=== PATIENT | male | born 1950 | race Two or more races ===

== ENCOUNTER 2022-01-04 21:20 | Inpatient (IN) | payer OTHER ==
[~2022-01-04] VITALS: Ht 177.8 cm; Wt 109.1 kg
[2022-01-04] MEDS ORDERED: ACETAMINOPHEN 325 MG TABLET PO PRN ×2 (22:00→23:00)
[2022-01-04] MEDS ORDERED: traZODone 50 MG TABLET. PO PRN (22:00)
[2022-01-04] MEDS ORDERED: CHLO473M MM (22:00)
[2022-01-04] MEDS ORDERED: ENOX40DI SQ (22:00)
[2022-01-04] MEDS ORDERED: CYAN-25 PO (22:00)
[2022-01-04] MEDS ORDERED: OLANZapine 2.5 MG TABLET PO PRN (22:00)
[2022-01-04] MEDS ORDERED: SERT-269 PO (22:00)
[2022-01-04] MEDS ORDERED: ATEN50TA PO (22:00)
[2022-01-04] MEDS ORDERED: ACET325T21 PO (22:00)
[2022-01-04] MEDS ORDERED: QUET50TA5 PO (22:00)
[2022-01-04] MEDS ORDERED: AMLO-187 PO (22:00)
[2022-01-04] MEDS ORDERED: TRAZ-120 PO ×2 (22:00)
[2022-01-04] MEDS ORDERED: PRAV40TA2 PO (22:00)
[2022-01-04] MEDS ORDERED: OLAN2.5T3 PO (22:00)
[2022-01-04] MEDS ORDERED: MELA10TA PO (22:00)
[2022-01-04 22:03] VITALS: BP 153/91
[2022-01-04] MEDS ORDERED: MELATONIN 3 MG TABLET PO PRN (22:15)
[2022-01-04] MEDS: ATORVASTATIN CALCIUM 10 MG TABLET. PO SCH (22:19)
[2022-01-04] MEDS: QUEtiapine 50 MG TABLET. PO SCH (22:19)
[2022-01-04] MEDS: traZODone 50 MG TABLET. PO SCH (22:19)
[2022-01-04] MEDS: amLODIPine BESYLATE 10 MG TABLET PO SCH (22:20)
[2022-01-04] MEDS: MELATONIN 3 MG TABLET PO SCH (22:20)
[2022-01-04] MEDS ORDERED: METHYL SALICYLATE/MENTHOL TOPICAL OINTMENT 57GM TUBE. TP PRN (23:00)
[2022-01-04] MEDS ORDERED: MAGNESIUM HYDROXIDE 2,400 MG/30 ML ORAL.SUSP. PO PRN (23:00)
[2022-01-04] MEDS ORDERED: MAG HYDROX/AL HYDROX/SIMETH 30 ML ORAL.SUSP PO PRN (23:00)
[2022-01-05 06:21] VITALS: BP 129/89
[2022-01-05 06:39] LABS: BACTERIA,URINE 0 /HPF (0-FEW); CLARITY,URINE CLEAR; COLOR,URINE YELLOW; GLUCOSE,URINE NEG (NEG); NITRITE,URINE NEG (NEG); RBC,URINE 0 /HPF (0-2); UROBILINOGEN,URINE 0.2 mg/dL (0.2 mg/dL); WBC,URINE 0 /HPF (0-4)
[2022-01-05 06:40] LABS: BASO # 0.1 x10^3/uL (0.0-0.2); BASO % 1 % (0-3); EOS # 0.4 x10^3/uL (0.0-0.7); EOS % 4 % (0-3); HEMATOCRIT 44.8 % (39.0-53.0); HEMOGLOBIN 14.8 g/dL (13.0-17.5); LYMPH % 12 % (24-48); MEAN CORPUSCULAR HEMOGLOBIN 31 pg (25-35); MEAN CORPUSCULAR HGB CONC 33 g/dL (31-37); MEAN CORPUSCULAR VOLUME 93 fL (79-100); MONO # 0.9 x10^3/uL (0.0-1.1); MONO % 10 % (0-9); NEUT # 6.4 x10^3uL (1.8-7.7); NEUT % 73 % (31-73); PLATELET COUNT 216 x10^3/uL (140-400); RED BLOOD COUNT 4.84 x10^6/uL (4.30-5.70); RED CELL DISTRIBUTION WIDTH 13.9 % (11.5-14.5); WHITE BLOOD COUNT 8.7 x10^3/uL (4.0-11.0)
[2022-01-05 06:55] LABS: ALBUMIN 3.6 g/dL (3.4-5.0); ALBUMIN/GLOBULIN RATIO 1.2 (1.0-1.7); CALCIUM 8.7 mg/dL (8.5-10.1); CREATININE 1.1 mg/dL (0.7-1.3); GFR 65.6; POTASSIUM 4.4 mmol/L (3.5-5.1); TOTAL BILIRUBIN 0.4 mg/dL (0.2-1.0); TOTAL PROTEIN 6.7 g/dL (6.4-8.2)
[2022-01-05] MEDS: QUEtiapine 50 MG TABLET. PO SCH ×2 (07:48→20:30)
[2022-01-05] MEDS: CYANOCOBALAMIN (VITAMIN B-12) 1,000 MCG TABLET. PO SCH (07:49)
[2022-01-05] MEDS: ATENOLOL 50 MG TABLET PO SCH (07:49)
[2022-01-05] MEDS: SERTRALINE 100 MG TABLET. PO SCH (07:49)
[2022-01-05] MEDS: CHLORHEXIDINE 0.12% 15 ML MOUTHWASH. MM SCH ×2 (07:49→20:28)
[2022-01-05] MEDS ORDERED: ENOXAPARIN 40 MG/0.4 ML SYRINGE. SQ SCH (09:00)
[2022-01-05] MEDS ORDERED: QUEtiapine 50 MG TABLET. PO SCH (09:00)
[2022-01-05 11:33] LABS: CHOLESTEROL/HDL RATIO 4.5
[2022-01-05 11:34] LABS: THYROID STIM HORMONE (TSH) 2.02 uIU/mL (0.358-3.740)
[2022-01-05 15:00] VITALS: BP 128/88
[2022-01-05] MEDS: MELATONIN 3 MG TABLET PO SCH (20:28)
[2022-01-05] MEDS: ATORVASTATIN CALCIUM 10 MG TABLET. PO SCH (20:29)
[2022-01-05] MEDS: traZODone 50 MG TABLET. PO SCH (20:29)
[2022-01-05] MEDS: amLODIPine BESYLATE 10 MG TABLET PO SCH (20:29)
[2022-01-05] MEDS ORDERED: ATORVASTATIN CALCIUM 10 MG TABLET. PO SCH (21:00)
[2022-01-05] MEDS ORDERED: amLODIPine BESYLATE 10 MG TABLET PO SCH (21:00)
[2022-01-05] MEDS ORDERED: traZODone 50 MG TABLET. PO SCH (21:00)
--- NOTE | 2022-01-06 06:02 | EKG ---
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
[2022-01-06 06:10] VITALS: BP 117/78
[2022-01-06 06:10] LABS: HEMOGLOBIN A1C 6.1 % (4.8-5.6)
[2022-01-06] MEDS: SERTRALINE 100 MG TABLET. PO SCH (07:42)
[2022-01-06] MEDS: ATENOLOL 50 MG TABLET PO SCH (07:42)
[2022-01-06] MEDS: CYANOCOBALAMIN (VITAMIN B-12) 1,000 MCG TABLET. PO SCH (07:43)
[2022-01-06] MEDS: CHLORHEXIDINE 0.12% 15 ML MOUTHWASH. MM SCH ×2 (07:43→20:58)
[2022-01-06] MEDS: QUEtiapine 50 MG TABLET. PO SCH ×2 (07:43→20:58)
--- NOTE | 2022-01-06 12:29 | HP ---
DATE OF SERVICE: 01/06/2022 ADMIT DATE: 01/04/2022 PSYCHIATRIC ADMISSION HISTORY AND EVALUATION This is a late entry, date of service 01/05, covers elements not covered in my initial note of 01/05. I met with the patient evening of 01/05, previously discussed with Padmini Payton, marketing research coordinator and nursing staff to gather historical information regarding circumstances prompting the patient's referral to us from [facility] in [place] and discussed with nursing staff couple of times following the patient's admission. Reviewed his past history, current past records. IDENTIFYING DATA: The patient is a 71-year-old male referred to us from [facility] in [place] after he presented to the [facility] in [place] and then referred to us on account of an acute exacerbation of his schizophrenia versus schizoaffective disorder, bipolar type and a history of PTSD. The patient had been paranoid, suspicious, extremely agitated, angry with pressured speech, verbally abusive, hallucinating, delusional. He was yelling about shootings happening at the [facility], conspiracies, another violent type ideology. He had failed outpatient psychiatric interventions. Behavior is deemed dangerous, unmanageable at the facility resulting in this referral initiated by the [place]. CHIEF COMPLAINT: "Its smell bad. My roommate poops and spreads it all over his body. I cannot live with that." The patient was hitting really hard with one hand on the other hand trying to express how frustrated, angry he was about this whole thing. HISTORY OF PRESENT ILLNESS: Reportedly, the patient has a history of schizoaffective disorder, bipolar type, treated at the [facility] in the past. He has been in nursing facilities for some time, recently getting more paranoid, agitated as noted above. He has had sleep and appetite changes, grandiosity. No active suicidal or homicidal ideation. PAST PSYCHIATRIC HISTORY: As above. MEDICAL HISTORY: Hyperlipidemia, hypertension, history of alcohol dependence, GERD, hyponatremia, diabetes mellitus, back pains, schizophrenia, PTSD. CODE STATUS: Full code. ALLERGIES: WELLBUTRIN, SIMVASTATIN. ACCU-CHEKS: None. DIET: Regular, diabetic. Takes medications whole. Ambulates ad maribell, though he uses a cane at home. CURRENT PSYCHOTROPICS: Melatonin 10 mg at bedtime, Seroquel 50 mg b.i.d., Zoloft 100 mg a day, trazodone 25 mg at bedtime, p.r.n. and q. 8 hours. FAMILY HISTORY: Noncontributory. SOCIAL HISTORY: Positive for alcohol abuse. No physical or sexual, elder abuse history is noted. He is not known to be a perpetrator. Reportedly his mother is 95 years old and he is closely involved with her. He states he was happy as to nursing facility in [place], but now he has no family there and he has not been happy at any of the facilities here in the [facility]. REVIEW OF SYSTEMS: No CV, , pulmonary, eye, ENT system symptoms on review. MENTAL STATUS EXAM: The patient seen individually on evening of 01/05. He is awake, alert, oriented. Speech coherent, rapid, at times loud with push of speech. Abstraction fair. Computation somewhat impaired. Language function intact. Attention span short. Mood and affect remains labile. He is paranoid, delusional. No active suicidal or homicidal ideation. IMPRESSION: Schizoaffective disorder, bipolar type, mixed with psychotic features; anxiety disorder, unspecified; impulse control disorder, unspecified. Rest as above including history of alcoholism. PLAN: Admit to Geropsychiatry Unit at [facility]. I will see the patient daily individually from a psychiatric standpoint, medical followup, Dr. Wilson/Dr. Pierson. Continue the patient on his current psychotropics. Consider adding Depakote as a mood stabilizer, [facility] We will make further adjustments as clinically indicated. ESTIMATED LENGTH OF STAY: 10-12 days. DISPOSITION PLANS: Back to [facility] when stable. OSEAS/CHERI WOOTEN: OSEAS/tiera TID: [id number]
[2022-01-06 16:04] VITALS: BP 139/93
[2022-01-06] MEDS: MELATONIN 3 MG TABLET PO SCH (20:59)
[2022-01-06] MEDS: traZODone 50 MG TABLET. PO SCH (20:59)
[2022-01-06] MEDS: ATORVASTATIN CALCIUM 10 MG TABLET. PO SCH (20:59)
[2022-01-06] MEDS: amLODIPine BESYLATE 10 MG TABLET PO SCH (20:59)
[2022-01-06] MEDS: DIVALPROEX ER 500 MG TAB.ER.24H PO SCH (21:01)
--- NOTE | 2022-01-06 21:57 | PDOC ---
Exam Note: Ancelmo Note: Late entry for 01/05/2022. Please also refer to the separate dictated note~for this date of service dictated separately.~Patient seen individually. Discussed the patient with Nursing staff reviewed the chart.~Reviewed interim history and current functioning. Reviewed vital signs,~Labs/ Radiology~and current medic ations noted below. Continue current treatment with the changes noted in the dictated addendum note Assessment: Vital Signs/I&O: Vital Signs Date Time Temp Pulse Resp B/P (MAP) Pulse Ox O2 Delivery O2 Flow Rate FiO2 01/06/22 20:59 72 139/93 01/06/22 16:04 97.3 20 98 Room Air I & O 01/05/22 01/05/22 01/06/22 15:00 23:00 07:00 Intake Total 480 ml 690 ml Balance 480 ml 690 ml Current Medications: Meds: Current Medications Medications (Trade) Dose Ordered Sig/Marie Route PRN Reason Start Time Stop Time Status Last Admin Dose Admin Divalproex Sodium (Depakote Er) 500 mg QHS PO 01/06/22 21:00 01/06/22 21:01 I have reviewed the current psychotropics carefully including drug interactions. Risk benefit ratio favors no change other than as noted in my dictated progress note. Diagnosis: Problems: (1) Schizoaffective disorder, bipolar type (2) Impulse control disorder, unspecified (3) Anxiety disorder, unspecified (4) Bipolar disorder, curr episode mixed, severe, with psychotic features SG AGUIRRE MD January 06, 2022 21:57
--- NOTE | 2022-01-06 21:57 | PDOC ---
Exam Note: Ancelmo Note: Please also refer to the separate dictated note~for this date of service dictated separately.~Patient seen individually. Discussed the patient with Nursing staff reviewed the chart.~Reviewed interim history and current functioning. Reviewed vital signs,~Labs/ Radiology~and current medications noted below. Continue current treatment with the changes noted in the dictated addendum note Assessment: Vital Signs/I&O: Vital Signs Date Time Temp Pulse Resp B/P (MAP) Pulse Ox O2 Delivery O2 Flow Rate FiO2 01/06/22 20:59 72 139/93 01/06/22 16:04 97.3 20 98 Room Air I & O 01/05/22 01/05/22 01/06/22 15:00 23:00 07:00 Intake Total 480 ml 690 ml Balance 480 ml 690 ml Current Medications: Meds: Current Medications Medications (Trade) Dose Ordered Sig/Marie Route PRN Reason Start Time Stop Time Status Last Admin Dose Admin Acetaminophen (Tylenol) 650 mg PRN Q4HRS PRN PO MILD PAIN / TEMP > 100.3'F 01/04/22 22:00 Amlodipine Besylate (Norvasc) 10 mg QHS PO 01/05/22 21:00 01/04/22 22:12 DC Atenolol (Tenormin) 50 mg DAILY PO 01/05/22 09:00 01/06/22 07:42 Chlorhexidine Gluconate (Peridex) 15 ml BID MM 01/05/22 09:00 01/06/22 20:58 Cyanocobalamin (Vitamin B-12) 1,000 mcg DAILY PO 01/05/22 09:00 01/06/22 07:43 Enoxaparin Sodium (Lovenox 40mg Syringe) 40 mg DAILY SQ 01/05/22 09:00 01/05/22 11:36 DC 01/05/22 07:50 Olanzapine (ZyPREXA) 2.5 mg PRN QHS PRN PO ANXIETY / AGITATION 01/04/22 22:00 Quetiapine Fumarate (SEROquel) 50 mg BID PO 01/05/22 09:00 01/04/22 22:12 DC Sertraline HCl (Zoloft) 100 mg DAILY PO 01/05/22 09:00 01/06/22 07:42 Trazodone HCl (Desyrel) 25 mg PRN Q8HRS PRN PO INSOMNIA 01/04/22 22:00 Trazodone HCl (Desyrel) 25 mg QHS PO 01/05/22 21:00 01/04/22 22:12 DC Melatonin (Melatonin) 9 mg PRN QHS PRN PO INSOMNIA 01/04/22 22:15 01/04/22 22:11 DC Atorvastatin Calcium (Lipitor) 10 mg QHS PO 01/05/22 21:00 01/04/22 22:11 DC Melatonin (Melatonin) 9 mg QHS PO 01/04/22 22:30 01/06/22 20:59 Amlodipine Besylate (Norvasc) 10 mg QHS PO 01/04/22 22:15 01/06/22 20:59 Quetiapine Fumarate (SEROquel) 50 mg BID PO 01/04/22 22:15 01/06/22 20:58 Trazodone HCl (Desyrel) 25 mg QHS PO 01/04/22 22:15 01/06/22 20:59 Atorvastatin Calcium (Lipitor) 10 mg QHS PO 01/04/22 22:30 01/06/22 20:59 Acetaminophen (Tylenol) 650 mg PRN Q6HRS PRN PO MILD PAIN / TEMP > 100.3'F 01/04/22 23:00 UNV Multi-Ingredient Ointment (Analgesic [place]) 1 osiel PRN QID PRN TP MUSCLE PAIN 01/04/22 23:00 Al Hydroxide/Mg Hydroxide (Mylanta Plus Xs) 15 ml PRN AFTMEALHC PRN PO DYSPEPSIA 01/04/22 23:00 Magnesium Hydroxide (Milk Of Magnesia) 2,400 mg PRN QHS PRN PO CONSTIPATION 01/04/22 23:00 Divalproex Sodium (Depakote Er) 500 mg QHS PO 01/06/22 21:00 01/06/22 21:01 Current Medications Medications (Trade) Dose Ordered Sig/Marie Route PRN Reason Start Time Stop Time Status Last Admin Dose Admin Divalproex Sodium (Depakote Er) 500 mg QHS PO 01/06/22 21:00 01/06/22 21:01 I have reviewed the current psychotropics carefully including drug interactions. Risk benefit ratio favors no change other than as noted in my dictated progress note. Diagnosis: Problems: (1) Schizoaffective disorder, bipolar type (2) Bipolar disorder, curr episode mixed, severe, with psychotic features (3) Anxiety disorder, unspecified (4) Impulse control disorder, unspecified SG AGUIRRE MD January 06, 2022 21:57
[2022-01-07 06:05] VITALS: BP 120/72
[2022-01-07] MEDS: CHLORHEXIDINE 0.12% 15 ML MOUTHWASH. MM SCH ×2 (09:00→21:14)
--- NOTE | 2022-01-07 09:04 | PDOC ---
Exam Note: Ancelmo Note: This note is a late entry for 01/06/2022 covers elements not covered in my initial note. Subjective: The patient was seen individually on 01/06/2022, discussed and reviewed the chart with Cayla SERRATO. The patient slept 6-1/2 hours previous night. He has been sort of condescending and grandiose, but other times telling the nursing staff he was too good, withdrawn, compliant with medications. The patient was reading the Bible as I entered the room. Review of Systems: Ambulation impaired. No CV, , pulmonary, eye system symptoms on review. Mental Status Exam: Patient is oriented to himself and situation. Speech coherent, rapid at times, somewhat grandiose, paranoid. Abstraction fair. Computation impaired. Language function intact. Mood and affect somewhat grandiose. Laboratory Data: Reviewed. Impression: Schizoaffective disorder, bipolar type, mixed with psychotic features. Anxiety disorder unspecified. Impulse control disorder unspecified. Plan: Start Depakote ER 500 mg p.o h.s. for his schizoaffective disorder, bipolar type. Check CBC, CMP, valproic acid level in 3 days. Adjust as clinically indicated. Continue rest psychotropics mentioned in my initial note. Reviewed drug interactions, risk-benefit ratio. Assessment: Vital Signs/I&O: Vital Signs Date Time Temp Pulse Resp B/P (MAP) Pulse Ox O2 Delivery O2 Flow Rate FiO2 01/07/22 06:05 97.6 81 18 120/72 (88) 94 Room Air I & O 01/06/22 01/06/22 01/07/22 14:59 22:59 06:59 Intake Total 840 ml 600 ml Balance 840 ml 600 ml Current Medications: Meds: Current Medications Medications (Trade) Dose Ordered Sig/Marie Route PRN Reason Start Time Stop Time Status Last Admin Dose Admin Divalproex Sodium (Depakote Er) 500 mg QHS PO 01/06/22 21:00 01/06/22 21:01 I have reviewed the current psychotropics carefully including drug interactions. Risk benefit ratio favors no change other than as noted in my dictated progress note. Diagnosis: Problems: (1) Schizoaffective disorder, bipolar type (2) Impulse control disorder, unspecified (3) Anxiety disorder, unspecified (4) Bipolar disorder, curr episode mixed, severe, with psychotic features SG AGUIRRE MD January 07, 2022 09:04
[2022-01-07] MEDS: SERTRALINE 100 MG TABLET. PO SCH (09:22)
[2022-01-07] MEDS: CYANOCOBALAMIN (VITAMIN B-12) 1,000 MCG TABLET. PO SCH (09:23)
[2022-01-07] MEDS: QUEtiapine 50 MG TABLET. PO SCH ×2 (09:23→21:11)
[2022-01-07] MEDS: ATENOLOL 50 MG TABLET PO SCH (09:23)
[2022-01-07 16:12] VITALS: BP 118/78
[2022-01-07] MEDS: amLODIPine BESYLATE 10 MG TABLET PO SCH (21:11)
[2022-01-07] MEDS: traZODone 50 MG TABLET. PO SCH (21:12)
[2022-01-07] MEDS: MELATONIN 3 MG TABLET PO SCH (21:14)
[2022-01-07] MEDS: DIVALPROEX ER 500 MG TAB.ER.24H PO SCH (21:14)
[2022-01-07] MEDS: ATORVASTATIN CALCIUM 10 MG TABLET. PO SCH (21:14)
--- NOTE | 2022-01-07 21:32 | PDOC ---
Exam Note: Ancelmo Note: Please also refer to the separate dictated note~for this date of service dictated separately.~Patient seen individually. Discussed the patient with Nursing staff reviewed the chart.~Reviewed interim history and current functioning. Reviewed vital signs,~Labs/ Radiology~and current medications noted below. Continue current treatment with the changes noted in the dictated addendum note Assessment: Vital Signs/I&O: Vital Signs Date Time Temp Pulse Resp B/P (MAP) Pulse Ox O2 Delivery O2 Flow Rate FiO2 01/07/22 21:11 64 118/78 01/07/22 16:12 97.7 16 93 Room Air I & O 01/06/22 01/06/22 01/07/22 14:59 22:59 06:59 Intake Total 840 ml 600 ml Balance 840 ml 600 ml Labs: Laboratory Tests Test 01/07/22 09:10 POC SARS CoV-2 Antigen Negative (NEGATIVE) Current Medications: Meds: Laboratory Tests Test 01/07/22 09:10 POC SARS CoV-2 Antigen Negative Current Medications Medications (Trade) Dose Ordered Sig/Marie Route PRN Reason Start Time Stop Time Status Last Admin Dose Admin Acetaminophen (Tylenol) 650 mg PRN Q4HRS PRN PO MILD PAIN / TEMP > 100.3'F 01/04/22 22:00 Amlodipine Besylate (Norvasc) 10 mg QHS PO 01/05/22 21:00 01/04/22 22:12 DC Atenolol (Tenormin) 50 mg DAILY PO 01/05/22 09:00 01/07/22 09:23 Chlorhexidine Gluconate (Peridex) 15 ml BID MM 01/05/22 09:00 01/07/22 21:14 Cyanocobalamin (Vitamin B-12) 1,000 mcg DAILY PO 01/05/22 09:00 01/07/22 09:23 Enoxaparin Sodium (Lovenox 40mg Syringe) 40 mg DAILY SQ 01/05/22 09:00 01/05/22 11:36 DC 01/05/22 07:50 Olanzapine (ZyPREXA) 2.5 mg PRN QHS PRN PO ANXIETY / AGITATION 01/04/22 22:00 Quetiapine Fumarate (SEROquel) 50 mg BID PO 01/05/22 09:00 01/04/22 22:12 DC Sertraline HCl (Zoloft) 100 mg DAILY PO 01/05/22 09:00 01/07/22 09:22 Trazodone HCl (Desyrel) 25 mg PRN Q8HRS PRN PO INSOMNIA 01/04/22 22:00 Trazodone HCl (Desyrel) 25 mg QHS PO 01/05/22 21:00 01/04/22 22:12 DC Melatonin (Melatonin) 9 mg PRN QHS PRN PO INSOMNIA 01/04/22 22:15 01/04/22 22:11 DC Atorvastatin Calcium (Lipitor) 10 mg QHS PO 01/05/22 21:00 01/04/22 22:11 DC Melatonin (Melatonin) 9 mg QHS PO 01/04/22 22:30 01/07/22 21:14 Amlodipine Besylate (Norvasc) 10 mg QHS PO 01/04/22 22:15 01/07/22 21:11 Quetiapine Fumarate (SEROquel) 50 mg BID PO 01/04/22 22:15 01/07/22 21:11 Trazodone HCl (Desyrel) 25 mg QHS PO 01/04/22 22:15 01/07/22 21:12 Atorvastatin Calcium (Lipitor) 10 mg QHS PO 01/04/22 22:30 01/07/22 21:14 Acetaminophen (Tylenol) 650 mg PRN Q6HRS PRN PO MILD PAIN / TEMP > 100.3'F 01/04/22 23:00 UNV Multi-Ingredient Ointment (Analgesic [place]) 1 osiel PRN QID PRN TP MUSCLE PAIN 01/04/22 23:00 Al Hydroxide/Mg Hydroxide (Mylanta Plus Xs) 15 ml PRN AFTMEALHC PRN PO DYSPEPSIA 01/04/22 23:00 Magnesium Hydroxide (Milk Of Magnesia) 2,400 mg PRN QHS PRN PO CONSTIPATION 01/04/22 23:00 Divalproex Sodium (Depakote Er) 500 mg QHS PO 01/06/22 21:00 01/07/22 21:14 I have reviewed the current psychotropics carefully including drug interactions. Risk benefit ratio favors no change other than as noted in my dictated progress note. Diagnosis: Problems: (1) Schizoaffective disorder, bipolar type (2) Impulse control disorder, unspecified (3) Anxiety disorder, unspecified (4) Bipolar disorder, curr episode mixed, severe, with psychotic features SG AGUIRRE MD January 07, 2022 21:32
[2022-01-08 06:19] VITALS: BP 107/56
[2022-01-08] MEDS: SERTRALINE 100 MG TABLET. PO SCH (08:22)
[2022-01-08] MEDS: CYANOCOBALAMIN (VITAMIN B-12) 1,000 MCG TABLET. PO SCH (08:22)
[2022-01-08] MEDS: QUEtiapine 50 MG TABLET. PO SCH ×2 (08:22→21:35)
[2022-01-08] MEDS: CHLORHEXIDINE 0.12% 15 ML MOUTHWASH. MM SCH ×2 (08:24→21:33)
[2022-01-08] MEDS: ATENOLOL 50 MG TABLET PO SCH (08:24)
--- NOTE | 2022-01-08 08:46 | PDOC ---
Exam Note: Ancelmo Note: This note is a late entry for 01/07/2022 covers elements not covered in my initial note. Subjective: The patient was reviewed at treatment team meeting individually in the morning on 01/07/2022 with Suni Nielson, Padmini Campoverde (health and social care teacher), Angélica, activity therapy, and Juan SERRATO, discussed and reviewed the chart. The patient slept 8-1/2 hours previous night. Appetite is fair. He has been withdrawn, spends much time in his room, quite grandiose, hyper-oriental orthodox, has flight of ideas. He is frequently reading the Bible. He is often talking about that he takes 2 people to cause pain, one to inflict it and one to receive it, somewhat convoluted in his thinking. He was talking about Covid be comparable to Birch beer, and baby is crown closing. He is disorganized, paranoid. He was talking about [place] being the place where lost women go to. I met with him at some length in his room. Review of Systems: Ambulation impaired. No CV, , pulmonary, eye system symptoms on review. Mental Status Exam: Patient is oriented to himself and situation. Speech coherent, rapid at times, somewhat grandiose, paranoid. Abstraction fair. Computation impaired. Language function intact. Mood and affect somewhat grandiose. Laboratory Data: Reviewed. Impression: Schizoaffective disorder, bipolar type, mixed with psychotic features. Anxiety disorder unspecified. Impulse control disorder unspecified. Plan: We have started him on Depakote. We are adjusting this to reach therapeutic level. We may consider reducing Zoloft since this could be worsening his philipp. We may change the Seroquel to Risperdal if psychotic symptoms persists. Maintain trazodone and melatonin. Reviewed drug in teractions, risk-benefit ratio. Assessment: Vital Signs/I&O: Vital Signs Date Time Temp Pulse Resp B/P (MAP) Pulse Ox O2 Delivery O2 Flow Rate FiO2 01/08/22 08:24 84 107/56 01/08/22 06:19 98.4 18 92 Room Air I & O 01/07/22 01/07/22 01/08/22 15:00 23:00 07:00 Intake Total 240 ml 240 ml 480 ml Balance 240 ml 240 ml 480 ml Labs: Laboratory Tests Test 01/07/22 09:10 POC SARS CoV-2 Antigen Negative (NEGATIVE) Current Medications: I have reviewed the current psychotropics carefully including drug interactions. Risk benefit ratio favors no change other than as noted in my dictated progress note. Diagnosis: Problems: (1) Schizoaffective disorder, bipolar type (2) Impulse control disorder, unspecified (3) Anxiety disorder, unspecified (4) Bipolar disorder, curr episode mixed, severe, with psychotic features SG AGUIRRE MD January 08, 2022 08:46
[2022-01-08 16:24] VITALS: BP 118/75
[2022-01-08] MEDS: DIVALPROEX ER 500 MG TAB.ER.24H PO SCH (21:33)
[2022-01-08] MEDS: MELATONIN 3 MG TABLET PO SCH (21:33)
[2022-01-08] MEDS: traZODone 50 MG TABLET. PO SCH (21:34)
[2022-01-08] MEDS: ATORVASTATIN CALCIUM 10 MG TABLET. PO SCH (21:34)
[2022-01-08] MEDS: amLODIPine BESYLATE 10 MG TABLET PO SCH (21:35)
--- NOTE | 2022-01-08 21:36 | PDOC ---
Exam Note: Ancelmo Note: Please also refer to the separate dictated note~for this date of service dictated separately.~Patient seen individually. Discussed the patient with Nursing staff reviewed the chart.~Reviewed interim history and current functioning. Reviewed vital signs,~Labs/ Radiology~and current medications noted below. Continue current treatment with the changes noted in the dictated addendum note Assessment: Vital Signs/I&O: Vital Signs Date Time Temp Pulse Resp B/P (MAP) Pulse Ox O2 Delivery O2 Flow Rate FiO2 01/08/22 16:24 97.6 60 18 118/75 (89) 93 01/08/22 06:19 Room Air I & O 01/07/22 01/07/22 01/08/22 15:00 23:00 07:00 Intake Total 240 ml 240 ml 480 ml Balance 240 ml 240 ml 480 ml Current Medications: Meds: Current Medications Medications (Trade) Dose Ordered Sig/Marie Route PRN Reason Start Time Stop Time Status Last Admin Dose Admin Acetaminophen (Tylenol) 650 mg PRN Q4HRS PRN PO MILD PAIN / TEMP > 100.3'F 01/04/22 22:00 Amlodipine Besylate (Norvasc) 10 mg QHS PO 01/05/22 21:00 01/04/22 22:12 DC Atenolol (Tenormin) 50 mg DAILY PO 01/05/22 09:00 01/08/22 08:24 Chlorhexidine Gluconate (Peridex) 15 ml BID MM 01/05/22 09:00 01/08/22 08:24 Cyanocobalamin (Vitamin B-12) 1,000 mcg DAILY PO 01/05/22 09:00 01/08/22 08:22 Enoxaparin Sodium (Lovenox 40mg Syringe) 40 mg DAILY SQ 01/05/22 09:00 01/05/22 11:36 DC 01/05/22 07:50 Olanzapine (ZyPREXA) 2.5 mg PRN QHS PRN PO ANXIETY / AGITATION 01/04/22 22:00 Quetiapine Fumarate (SEROquel) 50 mg BID PO 01/05/22 09:00 01/04/22 22:12 DC Sertraline HCl (Zoloft) 100 mg DAILY PO 01/05/22 09:00 01/08/22 08:22 Trazodone HCl (Desyrel) 25 mg PRN Q8HRS PRN PO INSOMNIA 01/04/22 22:00 Trazodone HCl (Desyrel) 25 mg QHS PO 01/05/22 21:00 01/04/22 22:12 DC Melatonin (Melatonin) 9 mg PRN QHS PRN PO INSOMNIA 01/04/22 22:15 01/04/22 22:11 DC Atorvastatin Calcium (Lipitor) 10 mg QHS PO 01/05/22 21:00 01/04/22 22:11 DC Melatonin (Melatonin) 9 mg QHS PO 01/04/22 22:30 01/07/22 21:14 Amlodipine Besylate (Norvasc) 10 mg QHS PO 01/04/22 22:15 01/07/22 21:11 Quetiapine Fumarate (SEROquel) 50 mg BID PO 01/04/22 22:15 01/08/22 08:22 Trazodone HCl (Desyrel) 25 mg QHS PO 01/04/22 22:15 01/07/22 21:12 Atorvastatin Calcium (Lipitor) 10 mg QHS PO 01/04/22 22:30 01/07/22 21:14 Acetaminophen (Tylenol) 650 mg PRN Q6HRS PRN PO MILD PAIN / TEMP > 100.3'F 01/04/22 23:00 UNV Multi-Ingredient Ointment (Analgesic [place]) 1 osiel PRN QID PRN TP MUSCLE PAIN 01/04/22 23:00 Al Hydroxide/Mg Hydroxide (Mylanta Plus Xs) 15 ml PRN AFTMEALHC PRN PO DYSPEPSIA 01/04/22 23:00 Magnesium Hydroxide (Milk Of Magnesia) 2,400 mg PRN QHS PRN PO CONSTIPATION 01/04/22 23:00 Divalproex Sodium (Depakote Er) 500 mg QHS PO 01/06/22 21:00 01/07/22 21:14 I have reviewed the current psychotropics carefully including drug interactions. Risk benefit ratio favors no change other than as noted in my dictated progress note. Diagnosis: Problems: (1) Schizoaffective disorder, bipolar type (2) Impulse control disorder, unspecified (3) Anxiety disorder, unspecified (4) Bipolar disorder, curr episode mixed, severe, with psychotic features SG AGUIRRE MD January 08, 2022 21:36
[2022-01-09 06:16] VITALS: BP 160/80
[2022-01-09 06:41] LABS: BASO # 0.1 x10^3/uL (0.0-0.2); BASO % 1 % (0-3); EOS # 0.5 x10^3/uL (0.0-0.7); EOS % 8 % (0-3); HEMATOCRIT 40.6 % (39.0-53.0); HEMOGLOBIN 13.7 g/dL (13.0-17.5); LYMPH # 1.3 x10^3/uL (1.0-4.8); LYMPH % 21 % (24-48); MEAN CORPUSCULAR HEMOGLOBIN 31 pg (25-35); MEAN CORPUSCULAR HGB CONC 34 g/dL (31-37); MEAN CORPUSCULAR VOLUME 93 fL (79-100); MONO # 0.7 x10^3/uL (0.0-1.1); MONO % 11 % (0-9); NEUT # 3.6 x10^3uL (1.8-7.7); NEUT % 59 % (31-73); PLATELET COUNT 203 x10^3/uL (140-400); RED BLOOD COUNT 4.39 x10^6/uL (4.30-5.70); RED CELL DISTRIBUTION WIDTH 13.3 % (11.5-14.5); WHITE BLOOD COUNT 6.1 x10^3/uL (4.0-11.0)
[2022-01-09 06:49] LABS: ALBUMIN 3.3 g/dL (3.4-5.0); ALBUMIN/GLOBULIN RATIO 1.1 (1.0-1.7); ALK PHOS 57 U/L (46-116); ALT (SGPT) 34 U/L (16-63); ANION GAP 5 (6-14); AST (SGOT) 15 U/L (15-37); BLOOD UREA NITROGEN 15 mg/dL (8-26); BUN/CREATININE RATIO 17 (6-20); CALCIUM 8.5 mg/dL (8.5-10.1); CARBON DIOXIDE 30 mmol/L (21-32); CHLORIDE 104 mmol/L (98-107); CREATININE 0.9 mg/dL (0.7-1.3); GFR 82.7; GLUCOSE 103 mg/dL (70-99); SODIUM 139 mmol/L (136-145); TOTAL BILIRUBIN 0.4 mg/dL (0.2-1.0); TOTAL PROTEIN 6.4 g/dL (6.4-8.2)
[2022-01-09 07:36] LABS: VAL ACID 29 mcg/mL (50-100)
[2022-01-09] MEDS: QUEtiapine 50 MG TABLET. PO SCH ×2 (08:04→20:52)
[2022-01-09] MEDS: CYANOCOBALAMIN (VITAMIN B-12) 1,000 MCG TABLET. PO SCH (08:04)
[2022-01-09] MEDS: CHLORHEXIDINE 0.12% 15 ML MOUTHWASH. MM SCH ×2 (08:05→20:49)
[2022-01-09] MEDS: SERTRALINE 100 MG TABLET. PO SCH (08:05)
[2022-01-09] MEDS: ATENOLOL 50 MG TABLET PO SCH (08:05)
--- NOTE | 2022-01-09 09:01 | PDOC ---
Exam Note: Ancelmo Note: This note is a late entry for 01/08/2022 covers elements not covered in my initial note. Subjective: The patient was seen individually on 01/08/2022, discussed and reviewed the chart with Juan SERRATO. There has been Covid exposure on the unit and the unit has been placed on quarantine as determined by Infectious Disease Department. The patient slept 6-1/4 hours previous night. He has been delusional, grandiose. I met with him in the dining room. He is hyperverbal at times, has been making statements that he feels people are unclean here. This is similar thing he said about the long term. He is making very detailed coloring and coloring the calendar. He is very proud of this as I processed this with him. Review of Systems: Ambulation impaired. No CV, , pulmonary, eye system symptoms on review. Mental Status Exam: Patient is oriented to himself and situation. Speech coherent, rapid at times, somewhat grandiose, paranoid. Abstraction fair. Computation impaired. Language function intact. Mood and affect somewhat grandiose. Laboratory Data: Reviewed. Impression: Schizoaffective disorder, bipolar type, mixed with psychotic features. Anxiety disorder unspecified. Impulse control disorder unspecified. Plan: Continue current psychotropics. Reviewed drug interactions, risk-benefit ratio. Adjust as clinically indicated. Assessment: Vital Signs/I&O: Vital Signs Date Time Temp Pulse Resp B/P (MAP) Pulse Ox O2 Delivery O2 Flow Rate FiO2 01/09/22 08:05 89 160/80 01/09/22 06:16 97.6 20 95 Room Air I & O 01/08/22 01/08/22 01/09/22 15:00 23:00 07:00 Intake Total 600 ml 480 ml Balance 600 ml 480 ml Labs: Laboratory Tests Test 01/09/22 06:18 White Blood Count 6.1 x10^3/uL (4.0-11.0) Red Blood Count 4.39 x10^6/uL (4.30-5.70) Hemoglobin 13.7 g/dL (13.0-17.5) Hematocrit 40.6 % (39.0-53.0) Mean Corpuscular Volume 93 fL (79-100) Mean Corpuscular Hemoglobin 31 pg (25-35) Mean Corpuscular Hemoglobin Concent 34 g/dL (31-37) Red Cell Distribution Width 13.3 % (11.5-14.5) Platelet Count 203 x10^3/uL (140-400) Neutrophils (%) (Auto) 59 % (31-73) Lymphocytes (%) (Auto) 21 % (24-48) L Monocytes (%) (Auto) 11 % (0-9) H Eosinophils (%) (Auto) 8 % (0-3) H Basophils (%) (Auto) 1 % (0-3) Neutrophils # (Auto) 3.6 x10^3uL (1.8-7.7) Lymphocytes # (Auto) 1.3 x10^3/uL (1.0-4.8) Monocytes # (Auto) 0.7 x10^3/uL (0.0-1.1) Eosinophils # (Auto) 0.5 x10^3/uL (0.0-0.7) Basophils # (Auto) 0.1 x10^3/uL (0.0-0.2) Sodium Level 139 mmol/L (136-145) Potassium Level 4.0 mmol/L (3.5-5.1) Chloride Level 104 mmol/L (98-107) Carbon Dioxide Level 30 mmol/L (21-32) Anion Gap 5 (6-14) L Blood Urea Nitrogen 15 mg/dL (8-26) Creatinine 0.9 mg/dL (0.7-1.3) Estimated GFR (Cockcroft-Gault) 82.7 BUN/Creatinine Ratio 17 (6-20) Glucose Level 103 mg/dL (70-99) H Calcium Level 8.5 mg/dL (8.5-10.1) Total Bilirubin 0.4 mg/dL (0.2-1.0) Aspartate Amino Transferase (AST) 15 U/L (15-37) Alanine Aminotransferase (ALT) 34 U/L (16-63) Alkaline Phosphatase 57 U/L (46-116) Total Protein 6.4 g/dL (6.4-8.2) Albumin 3.3 g/dL (3.4-5.0) L Albumin/Globulin Ratio 1.1 (1.0-1.7) Valproic Acid Level 29 mcg/mL (50-100) L Valproic Acid Last Dose Date 01/08/22 Valproic Acid Last Dose Time 2100 Current Medications: I have reviewed the current psychotropics carefully including drug interactions. Risk benefit ratio favors no change other than as noted in my dictated progress note. Diagnosis: Problems: (1) Schizoaffective disorder, bipolar type (2) Impulse control disorder, unspecified (3) Anxiety disorder, unspecified (4) Bipolar disorder, curr episode mixed, severe, with psychotic features SG AGUIRRE MD January 09, 2022 09:01
[2022-01-09 16:54] VITALS: BP 129/76
[2022-01-09] MEDS: ATORVASTATIN CALCIUM 10 MG TABLET. PO SCH (20:50)
[2022-01-09] MEDS: traZODone 50 MG TABLET. PO SCH (20:50)
[2022-01-09] MEDS: MELATONIN 3 MG TABLET PO SCH (20:51)
[2022-01-09] MEDS: amLODIPine BESYLATE 10 MG TABLET PO SCH (20:52)
[2022-01-09] MEDS: DIVALPROEX ER 500 MG TAB.ER.24H PO SCH (20:54)
--- NOTE | 2022-01-09 21:58 | PDOC ---
Exam Note: Ancelmo Note: Please also refer to the separate dictated note~for this date of service dictated separately.~Patient seen individually. Discussed the patient with Nursing staff reviewed the chart.~Reviewed interim history and current functioning. Reviewed vital signs,~Labs/ Radiology~and current medications noted below. Continue current treatment with the changes noted in the dictated addendum note Assessment: Vital Signs/I&O: Vital Signs Date Time Temp Pulse Resp B/P (MAP) Pulse Ox O2 Delivery O2 Flow Rate FiO2 01/09/22 20:52 73 129/76 01/09/22 16:54 97.7 18 95 01/09/22 06:16 Room Air I & O 01/08/22 01/08/22 01/09/22 15:00 23:00 07:00 Intake Total 600 ml 480 ml Balance 600 ml 480 ml Labs: Laboratory Tests Test 01/09/22 06:18 White Blood Count 6.1 x10^3/uL (4.0-11.0) Red Blood Count 4.39 x10^6/uL (4.30-5.70) Hemoglobin 13.7 g/dL (13.0-17.5) Hematocrit 40.6 % (39.0-53.0) Mean Corpuscular Volume 93 fL (79-100) Mean Corpuscular Hemoglobin 31 pg (25-35) Mean Corpuscular Hemoglobin Concent 34 g/dL (31-37) Red Cell Distribution Width 13.3 % (11.5-14.5) Platelet Count 203 x10^3/uL (140-400) Neutrophils (%) (Auto) 59 % (31-73) Lymphocytes (%) (Auto) 21 % (24-48) L Monocytes (%) (Auto) 11 % (0-9) H Eosinophils (%) (Auto) 8 % (0-3) H Basophils (%) (Auto) 1 % (0-3) Neutrophils # (Auto) 3.6 x10^3uL (1.8-7.7) Lymphocytes # (Auto) 1.3 x10^3/uL (1.0-4.8) Monocytes # (Auto) 0.7 x10^3/uL (0.0-1.1) Eosinophils # (Auto) 0.5 x10^3/uL (0.0-0.7) Basophils # (Auto) 0.1 x10^3/uL (0.0-0.2) Sodium Level 139 mmol/L (136-145) Potassium Level 4.0 mmol/L (3.5-5.1) Chloride Level 104 mmol/L (98-107) Carbon Dioxide Level 30 mmol/L (21-32) Anion Gap 5 (6-14) L Blood Urea Nitrogen 15 mg/dL (8-26) Creatinine 0.9 mg/dL (0.7-1.3) Estimated GFR (Cockcroft-Gault) 82.7 BUN/Creatinine Ratio 17 (6-20) Glucose Level 103 mg/dL (70-99) H Calcium Level 8.5 mg/dL (8.5-10.1) Total Bilirubin 0.4 mg/dL (0.2-1.0) Aspartate Amino Transferase (AST) 15 U/L (15-37) Alanine Aminotransferase (ALT) 34 U/L (16-63) Alkaline Phosphatase 57 U/L (46-116) Total Protein 6.4 g/dL (6.4-8.2) Albumin 3.3 g/dL (3.4-5.0) L Albumin/Globulin Ratio 1.1 (1.0-1.7) Valproic Acid Level 29 mcg/mL (50-100) L Valproic Acid Last Dose Date 01/08/22 Valproic Acid Last Dose Time 2100 Current Medications: Meds: Laboratory Tests Test 01/09/22 06:18 White Blood Count 6.1 x10^3/uL Red Blood Count 4.39 x10^6/uL Hemoglobin 13.7 g/dL Hematocrit 40.6 % Mean Corpuscular Volume 93 fL Mean Corpuscular Hemoglobin 31 pg Mean Corpuscular Hemoglobin Concent 34 g/dL Red Cell Distribution Width 13.3 % Platelet Count 203 x10^3/uL Neutrophils (%) (Auto) 59 % Lymphocytes (%) (Auto) 21 % Monocytes (%) (Auto) 11 % Eosinophils (%) (Auto) 8 % Basophils (%) (Auto) 1 % Neutrophils # (Auto) 3.6 x10^3uL Lymphocytes # (Auto) 1.3 x10^3/uL Monocytes # (Auto) 0.7 x10^3/uL Eosinophils # (Auto) 0.5 x10^3/uL Basophils # (Auto) 0.1 x10^3/uL Sodium Level 139 mmol/L Potassium Level 4.0 mmol/L Chloride Level 104 mmol/L Carbon Dioxide Level 30 mmol/L Anion Gap 5 Blood Urea Nitrogen 15 mg/dL Creatinine 0.9 mg/dL Estimated GFR (Cockcroft-Gault) 82.7 BUN/Creatinine Ratio 17 Glucose Level 103 mg/dL Calcium Level 8.5 mg/dL Total Bilirubin 0.4 mg/dL Aspartate Amino Transf (AST/SGOT) 15 U/L Alanine Aminotransferase (ALT/SGPT) 34 U/L Alkaline Phosphatase 57 U/L Total Protein 6.4 g/dL Albumin 3.3 g/dL Albumin/Globulin Ratio 1.1 Valproic Acid (Depakene) Level 29 mcg/mL Valproic Acid Last Dose Date 01/08/22 Valproic Acid Last Dose Time 2100 Current Medications Medications (Trade) Dose Ordered Sig/Marie Route PRN Reason Start Time Stop Time Status Last Admin Dose Admin Acetaminophen (Tylenol) 650 mg PRN Q4HRS PRN PO MILD PAIN / TEMP > 100.3'F 01/04/22 22:00 Amlodipine Besylate (Norvasc) 10 mg QHS PO 01/05/22 21:00 01/04/22 22:12 DC Atenolol (Tenormin) 50 mg DAILY PO 01/05/22 09:00 01/09/22 08:05 Chlorhexidine Gluconate (Peridex) 15 ml BID MM 01/05/22 09:00 01/09/22 20:49 Cyanocobalamin (Vitamin B-12) 1,000 mcg DAILY PO 01/05/22 09:00 01/09/22 08:04 Enoxaparin Sodium (Lovenox 40mg Syringe) 40 mg DAILY SQ 01/05/22 09:00 01/05/22 11:36 DC 01/05/22 07:50 Olanzapine (ZyPREXA) 2.5 mg PRN QHS PRN PO ANXIETY / AGITATION 01/04/22 22:00 Quetiapine Fumarate (SEROquel) 50 mg BID PO 01/05/22 09:00 01/04/22 22:12 DC Sertraline HCl (Zoloft) 100 mg DAILY PO 01/05/22 09:00 01/09/22 08:05 Trazodone HCl (Desyrel) 25 mg PRN Q8HRS PRN PO INSOMNIA 01/04/22 22:00 Trazodone HCl (Desyrel) 25 mg QHS PO 01/05/22 21:00 01/04/22 22:12 DC Melatonin (Melatonin) 9 mg PRN QHS PRN PO INSOMNIA 01/04/22 22:15 01/04/22 22:11 DC Atorvastatin Calcium (Lipitor) 10 mg QHS PO 01/05/22 21:00 01/04/22 22:11 DC Melatonin (Melatonin) 9 mg QHS PO 01/04/22 22:30 01/09/22 20:51 Amlodipine Besylate (Norvasc) 10 mg QHS PO 01/04/22 22:15 01/09/22 20:52 Quetiapine Fumarate (SEROquel) 50 mg BID PO 01/04/22 22:15 01/09/22 20:52 Trazodone HCl (Desyrel) 25 mg QHS PO 01/04/22 22:15 01/09/22 20:50 Atorvastatin Calcium (Lipitor) 10 mg QHS PO 01/04/22 22:30 01/09/22 20:50 Acetaminophen (Tylenol) 650 mg PRN Q6HRS PRN PO MILD PAIN / TEMP > 100.3'F 01/04/22 23:00 UNV Multi-Ingredient Ointment (Analgesic [place]) 1 osiel PRN QID PRN TP MUSCLE PAIN 01/04/22 23:00 Al Hydroxide/Mg Hydroxide (Mylanta Plus Xs) 15 ml PRN AFTMEALHC PRN PO DYSPEPSIA 01/04/22 23:00 Magnesium Hydroxide (Milk Of Magnesia) 2,400 mg PRN QHS PRN PO CONSTIPATION 01/04/22 23:00 Divalproex Sodium (Depakote Er) 500 mg QHS PO 01/06/22 21:00 01/09/22 17:19 DC 01/08/22 21:33 Divalproex Sodium (Depakote Er) 1,000 mg QHS PO 01/09/22 21:00 01/09/22 20:54 Current Medications Medications (Trade) Dose Ordered Sig/Marie Route PRN Reason Start Time Stop Time Status Last Admin Dose Admin Divalproex Sodium (Depakote Er) 1,000 mg QHS PO 01/09/22 21:00 01/09/22 20:54 I have reviewed the current psychotropics carefully including drug interactions. Risk benefit ratio favors no change other than as noted in my dictated progress note. Diagnosis: Problems: (1) Schizoaffective disorder, bipolar type (2) Impulse control disorder, unspecified (3) Anxiety disorder, unspecified (4) Bipolar disorder, curr episode mixed, severe, with psychotic features SG AGUIRRE MD January 09, 2022 21:58
[2022-01-10 06:25] VITALS: BP 133/76
[2022-01-10] MEDS: SERTRALINE 100 MG TABLET. PO SCH (07:53)
[2022-01-10] MEDS: CYANOCOBALAMIN (VITAMIN B-12) 1,000 MCG TABLET. PO SCH (07:53)
[2022-01-10] MEDS: ATENOLOL 50 MG TABLET PO SCH (07:53)
[2022-01-10] MEDS: QUEtiapine 50 MG TABLET. PO SCH ×2 (07:53→20:45)
[2022-01-10] MEDS: CHLORHEXIDINE 0.12% 15 ML MOUTHWASH. MM SCH ×2 (07:53→20:42)
--- NOTE | 2022-01-10 08:36 | PDOC ---
Exam Note: Ancelmo Note: This note is a late entry for 01/09/2022 covers elements not covered in my initial note. Subjective: The patient was seen individually on 01/09/2022, discussed and reviewed the chart with Juan SERRATO. There has been Covid exposure on the unit and the unit has been placed on quarantine as determined by Infectious Disease Department. The patient slept 6-3/4 hours previous night. Overall he has done better, more focused, less grandiose. Valproic acid level 29. We will increase Depakote ER from 500 mg h.s. to 1 g h.s. Check CBC, CMP, valproic acid level in 3 days. I met with him in his room at length. He made some very colourful drawings and seems quite adapted this. Review of Systems: Ambulation impaired. No CV, , pulmonary, eye system symptoms on review. Reliability varies. Mental Status Exam: Patient is oriented to himself and situation. Speech coherent, rapid at times, somewhat grandiose, paranoid. Abstraction fair. Computation impaired. Language function intact. Mood and affect somewhat grandiose. Laboratory Data: Reviewed. Impression: Schizoaffective disorder, bipolar type, mixed with psychotic features. Anxiety disorder unspecified. Impulse control disorder unspecified. Plan: Continue current psychotropics. Reviewed drug interactions, risk-benefit ratio. Adjust as clinically indicated. Valproic acid level is subtherapeutic at 29. We will increase Depakote ER from 500 mg h.s. to 1g p.o. h.s. Check CBC, CMP, valproic acid level in 3 days. Assessment: Vital Signs/I&O: Vital Signs Date Time Temp Pulse Resp B/P (MAP) Pulse Ox O2 Delivery O2 Flow Rate FiO2 01/10/22 07:53 84 133/76 01/10/22 06:25 97.5 20 94 01/09/22 06:16 Room Air I & O 01/09/22 01/09/22 01/10/22 15:00 23:00 07:00 Intake Total 720 ml 720 ml Balance 720 ml 720 ml Current Medications: Meds: Current Medications Medications (Trade) Dose Ordered Sig/Marie Route PRN Reason Start Time Stop Time Status Last Admin Dose Admin Divalproex Sodium (Depakote Er) 1,000 mg QHS PO 01/09/22 21:00 01/09/22 20:54 I have reviewed the current psychotropics carefully including drug interactions. Risk benefit ratio favors no change other than as noted in my dictated progress note. Diagnosis: Problems: (1) Schizoaffective disorder, bipolar type (2) Impulse control disorder, unspecified (3) Anxiety disorder, unspecified (4) Bipolar disorder, curr episode mixed, severe, with psychotic features SG AGUIRRE MD January 10, 2022 08:36
--- NOTE | 2022-01-10 14:34 | CONS ---
DATE OF CONSULTATION: 01/05/2022 REASON FOR CONSULTATION: Medical management. HISTORY OF PRESENT ILLNESS: The patient is a 71-year-old male patient who apparently was a resident at [facility]. From there, he was in [facility] where he was seen and admitted on account of being paranoid, suspicious, agitated, angry with a pressured speech, verbally abusive, hallucinating, delusional, yelling about shooting, conspiracies and another violent-type ideologies, all this in a background of schizophrenia and posttraumatic stress disorder. On questioning him, he denied any complaint. PAST MEDICAL HISTORY: Significant for hyperlipidemia, hypertension, gastroesophageal reflux disease, hyponatremia, type 2 diabetes, chronic back pain. PAST PSYCHIATRIC HISTORY: Significant for schizophrenia, posttraumatic stress disorder, alcohol dependence and insomnia. ALLERGIES: HE IS ALLERGIC TO WELLBUTRIN AND SIMVASTATIN. MEDICATIONS: He is currently on the following medications. He is on Lovenox 40 mg subcutaneous daily, pravastatin sodium 40 mg at bedtime, atenolol 50 mg once a day, amlodipine besylate 10 mg at bedtime, Tylenol 650 mg every 4 hours as needed, sertraline 100 mg daily, trazodone 25 mg every 8 hours, trazodone 25 mg at bedtime, olanzapine 2.5 mg at bedtime, quetiapine fumarate 50 mg twice a day, chlorhexidine gluconate 15 mL twice a day, cyanocobalamin 1000 mcg once a day, melatonin 10 mg at bedtime. FAMILY HISTORY: Noncontributory. SOCIAL HISTORY: He is a resident at [facility] and [facility]. He is , has no children of his own. REVIEW OF SYSTEMS: As per history of present illness. PHYSICAL EXAMINATION: GENERAL: When I examined him, he looked well and was clearly in no apparent respiratory distress. No pallor, jaundice, cyanosis or thyromegaly. No jugular venous distention. No lower limb edema. VITAL SIGNS: His heart rate was 94, blood pressure was 129/89, temperature 97.8, respiratory rate 20 and oxygen saturation was 91% on room air. HEAD, EYES, EARS, NOSE, AND THROAT: Showed he is normocephalic, atraumatic. NECK: Supple. HEART: Normal first and second heart sounds. No gallop, rub or murmur. CHEST: Clear to auscultation. No crepitation or rhonchi. ABDOMEN: Distended, soft, nontender. NEUROLOGIC: He was grossly intact. LABORATORY DATA: Showed a white cell count of 8.7, hemoglobin 15, hematocrit 45, MCV 93 and platelet count of 216,000 with normal manual differential. His chemistry showed serum sodium 142, potassium 4.4, chloride 105, bicarbonate 29, anion gap of 8, BUN 20, creatinine 1.1. Estimated GFR was 65 mL per minute. His glucose 102, calcium was 8.7, magnesium 2. Total bilirubin, AST, ALT, alkaline phosphatase were normal. Total protein 6.7, albumin 3.6. His D-dimer was slightly elevated at 1.05 mg per liter. His urinalysis essentially unremarkable. ASSESSMENT AND PLAN: In summary, this is a 76-year-old male patient who was [facility] on account of being paranoid, suspicious, agitated, angry with pressured speech. He was verbally abusive, hallucinating, delusional, yelling about shooting, conspiracy and an otherwise violent-type ideologies, all this in a background of schizophrenia and posttraumatic stress disorder. Of note, the patient has not so far demonstrated any of these behaviors in this facility. Medically, he has multiple medical problems including hypertension, hyperlipidemia, hyponatremia, type 2 diabetes mellitus, gastroesophageal reflux disease, chronic back pain. All in all, the patient seems to be medically stable. All his vital signs are stable. I reviewed all his lab works and they are all within acceptable range. I will continue with all his current medication; however, I do not think he needs Lovenox. I will discontinue that. He is ambulatory. Thank you, Dr. Millan, for allowing me to participate in the care of this patient. DAVE/ELIZABETH WOOTEN: Aston TID: [id number]
[2022-01-10 16:48] VITALS: BP 116/76
[2022-01-10] MEDS: traZODone 50 MG TABLET. PO SCH (20:42)
[2022-01-10] MEDS: DIVALPROEX ER 500 MG TAB.ER.24H PO SCH (20:42)
[2022-01-10] MEDS: MELATONIN 3 MG TABLET PO SCH (20:43)
[2022-01-10] MEDS: ATORVASTATIN CALCIUM 10 MG TABLET. PO SCH (20:43)
[2022-01-10] MEDS: amLODIPine BESYLATE 10 MG TABLET PO SCH (20:44)
--- NOTE | 2022-01-10 21:07 | PDOC ---
Exam Note: Ancelmo Note: Please also refer to the separate dictated note~for this date of service dictated separately.~Patient seen individually. Discussed the patient with Nursing staff reviewed the chart.~Reviewed interim history and current functioning. Reviewed vital signs,~Labs/ Radiology~and current medications noted below. Continue current treatment with the changes noted in the dictated addendum note Assessment: Vital Signs/I&O: Vital Signs Date Time Temp Pulse Resp B/P (MAP) Pulse Ox O2 Delivery O2 Flow Rate FiO2 01/10/22 20:44 59 116/76 01/10/22 16:48 98.1 18 95 01/09/22 06:16 Room Air I & O 01/09/22 01/09/22 01/10/22 15:00 23:00 07:00 Intake Total 720 ml 720 ml Balance 720 ml 720 ml Current Medications: Meds: Current Medications Medications (Trade) Dose Ordered Sig/Marie Route PRN Reason Start Time Stop Time Status Last Admin Dose Admin Acetaminophen (Tylenol) 650 mg PRN Q4HRS PRN PO MILD PAIN / TEMP > 100.3'F 01/04/22 22:00 Amlodipine Besylate (Norvasc) 10 mg QHS PO 01/05/22 21:00 01/04/22 22:12 DC Atenolol (Tenormin) 50 mg DAILY PO 01/05/22 09:00 01/10/22 07:53 Chlorhexidine Gluconate (Peridex) 15 ml BID MM 01/05/22 09:00 01/10/22 20:42 Cyanocobalamin (Vitamin B-12) 1,000 mcg DAILY PO 01/05/22 09:00 01/10/22 07:53 Enoxaparin Sodium (Lovenox 40mg Syringe) 40 mg DAILY SQ 01/05/22 09:00 01/05/22 11:36 DC 01/05/22 07:50 Olanzapine (ZyPREXA) 2.5 mg PRN QHS PRN PO ANXIETY / AGITATION 01/04/22 22:00 Quetiapine Fumarate (SEROquel) 50 mg BID PO 01/05/22 09:00 01/04/22 22:12 DC Sertraline HCl (Zoloft) 100 mg DAILY PO 01/05/22 09:00 01/10/22 07:53 Trazodone HCl (Desyrel) 25 mg PRN Q8HRS PRN PO INSOMNIA 01/04/22 22:00 Trazodone HCl (Desyrel) 25 mg QHS PO 01/05/22 21:00 01/04/22 22:12 DC Melatonin (Melatonin) 9 mg PRN QHS PRN PO INSOMNIA 01/04/22 22:15 01/04/22 22:11 DC Atorvastatin Calcium (Lipitor) 10 mg QHS PO 01/05/22 21:00 01/04/22 22:11 DC Melatonin (Melatonin) 9 mg QHS PO 01/04/22 22:30 01/10/22 20:43 Amlodipine Besylate (Norvasc) 10 mg QHS PO 01/04/22 22:15 01/10/22 20:44 Quetiapine Fumarate (SEROquel) 50 mg BID PO 01/04/22 22:15 01/10/22 20:45 Trazodone HCl (Desyrel) 25 mg QHS PO 01/04/22 22:15 01/10/22 20:42 Atorvastatin Calcium (Lipitor) 10 mg QHS PO 01/04/22 22:30 01/10/22 20:43 Acetaminophen (Tylenol) 650 mg PRN Q6HRS PRN PO MILD PAIN / TEMP > 100.3'F 01/04/22 23:00 UNV Multi-Ingredient Ointment (Analgesic [place] White) 1 osiel PRN QID PRN TP MUSCLE PAIN 01/04/22 23:00 Al Hydroxide/Mg Hydroxide (Mylanta Plus Xs) 15 ml PRN AFTMEALHC PRN PO DYSPEPSIA 01/04/22 23:00 Magnesium Hydroxide (Milk Of Magnesia) 2,400 mg PRN QHS PRN PO CONSTIPATION 01/04/22 23:00 Divalproex Sodium (Depakote Er) 500 mg QHS PO 01/06/22 21:00 01/09/22 17:19 DC 01/08/22 21:33 Divalproex Sodium (Depakote Er) 1,000 mg QHS PO 01/09/22 21:00 01/10/22 20:42 I have reviewed the current psychotropics carefully including drug interactions. Risk benefit ratio favors no change other than as noted in my dictated progress note. Diagnosis: Problems: (1) Schizoaffective disorder, bipolar type (2) Impulse control disorder, unspecified (3) Anxiety disorder, unspecified (4) Bipolar disorder, curr episode mixed, severe, with psychotic features SG AGUIRRE MD January 10, 2022 21:07
[2022-01-11 06:42] VITALS: BP 110/74
[2022-01-11] MEDS: QUEtiapine 50 MG TABLET. PO SCH ×2 (08:34→19:52)
[2022-01-11] MEDS: SERTRALINE 100 MG TABLET. PO SCH (08:34)
[2022-01-11] MEDS: CHLORHEXIDINE 0.12% 15 ML MOUTHWASH. MM SCH ×2 (08:34→19:53)
[2022-01-11] MEDS: CYANOCOBALAMIN (VITAMIN B-12) 1,000 MCG TABLET. PO SCH (08:34)
[2022-01-11] MEDS: ATENOLOL 50 MG TABLET PO SCH (08:35)
[2022-01-11 16:29] VITALS: BP 129/74
[2022-01-11] MEDS: DIVALPROEX ER 500 MG TAB.ER.24H PO SCH (19:52)
[2022-01-11] MEDS: MELATONIN 3 MG TABLET PO SCH (19:52)
[2022-01-11] MEDS: traZODone 50 MG TABLET. PO SCH (19:52)
[2022-01-11] MEDS: ATORVASTATIN CALCIUM 10 MG TABLET. PO SCH (19:52)
[2022-01-11] MEDS: amLODIPine BESYLATE 10 MG TABLET PO SCH (19:53)
--- NOTE | 2022-01-11 21:51 | PDOC ---
Exam Note: Ancelmo Note: This note is a late entry for 01/10/2022 covers elements not covered in my initial note. Subjective: The patient was seen individually on 01/10/2022, discussed and reviewed the chart with Ольга SERRATO. The patient slept 7-1/4 hours previous night. He is social, fairly appropriate. Review of Systems: Ambulation impaired. No CV, , pulmonary, eye system symptoms on review. Reliability varies. Mental Status Exam: Patient is oriented to himself and situation. Speech coherent, rapid at times, somewhat grandiose, paranoid. Abstraction fair. Computation impaired. Language function intact. Mood and affect somewhat grandiose. Laboratory Data: Reviewed. Impression: Schizoaffective disorder, bipolar type, mixed with psychotic features. Anxiety disorder unspecified. Impulse control disorder unspecified. Plan: Continue current psychotropics. Reviewed drug interactions, risk-benefit ratio. Adjust as clinically indicated. Assessment: Vital Signs/I&O: Vital Signs Date Time Temp Pulse Resp B/P (MAP) Pulse Ox O2 Delivery O2 Flow Rate FiO2 01/11/22 19:53 66 129/74 01/11/22 16:29 97.6 19 93 01/11/22 06:42 Room Air I & O 01/10/22 01/10/22 01/11/22 15:00 23:00 07:00 Intake Total 720 ml 600 ml Balance 720 ml 600 ml Current Medications: I have reviewed the current psychotropics carefully including drug interactions. Risk benefit ratio favors no change other than as noted in my dictated progress note. Diagnosis: Problems: (1) Schizoaffective disorder, bipolar type (2) Impulse control disorder, unspecified (3) Anxiety disorder, unspecified (4) Bipolar disorder, curr episode mixed, severe, with psychotic features SG AGUIRRE MD January 11, 2022 21:51
--- NOTE | 2022-01-11 22:05 | PDOC ---
Exam Note: Ancelmo Note: Please also refer to the separate dictated note~for this date of service dictated separately.~Patient seen individually. Discussed the patient with Nursing staff reviewed the chart.~Reviewed interim history and current functioning. Reviewed vital signs,~Labs/ Radiology~and current medications noted below. Continue current treatment with the changes noted in the dictated addendum note Assessment: Vital Signs/I&O: Vital Signs Date Time Temp Pulse Resp B/P (MAP) Pulse Ox O2 Delivery O2 Flow Rate FiO2 01/11/22 19:53 66 129/74 01/11/22 16:29 97.6 19 93 01/11/22 06:42 Room Air I & O 01/10/22 01/10/22 01/11/22 15:00 23:00 07:00 Intake Total 720 ml 600 ml Balance 720 ml 600 ml Current Medications: Meds: Current Medications Medications (Trade) Dose Ordered Sig/Marie Route PRN Reason Start Time Stop Time Status Last Admin Dose Admin Acetaminophen (Tylenol) 650 mg PRN Q4HRS PRN PO MILD PAIN / TEMP > 100.3'F 01/04/22 22:00 Amlodipine Besylate (Norvasc) 10 mg QHS PO 01/05/22 21:00 01/04/22 22:12 DC Atenolol (Tenormin) 50 mg DAILY PO 01/05/22 09:00 01/11/22 08:35 Chlorhexidine Gluconate (Peridex) 15 ml BID MM 01/05/22 09:00 01/11/22 19:53 Cyanocobalamin (Vitamin B-12) 1,000 mcg DAILY PO 01/05/22 09:00 01/11/22 08:34 Enoxaparin Sodium (Lovenox 40mg Syringe) 40 mg DAILY SQ 01/05/22 09:00 01/05/22 11:36 DC 01/05/22 07:50 Olanzapine (ZyPREXA) 2.5 mg PRN QHS PRN PO ANXIETY / AGITATION 01/04/22 22:00 Quetiapine Fumarate (SEROquel) 50 mg BID PO 01/05/22 09:00 01/04/22 22:12 DC Sertraline HCl (Zoloft) 100 mg DAILY PO 01/05/22 09:00 01/11/22 08:34 Trazodone HCl (Desyrel) 25 mg PRN Q8HRS PRN PO INSOMNIA 01/04/22 22:00 Trazodone HCl (Desyrel) 25 mg QHS PO 01/05/22 21:00 01/04/22 22:12 DC Melatonin (Melatonin) 9 mg PRN QHS PRN PO INSOMNIA 01/04/22 22:15 01/04/22 22:11 DC Atorvastatin Calcium (Lipitor) 10 mg QHS PO 01/05/22 21:00 01/04/22 22:11 DC Melatonin (Melatonin) 9 mg QHS PO 01/04/22 22:30 01/11/22 19:52 Amlodipine Besylate (Norvasc) 10 mg QHS PO 01/04/22 22:15 01/11/22 19:53 Quetiapine Fumarate (SEROquel) 50 mg BID PO 01/04/22 22:15 01/11/22 19:52 Trazodone HCl (Desyrel) 25 mg QHS PO 01/04/22 22:15 01/11/22 19:52 Atorvastatin Calcium (Lipitor) 10 mg QHS PO 01/04/22 22:30 01/11/22 19:52 Acetaminophen (Tylenol) 650 mg PRN Q6HRS PRN PO MILD PAIN / TEMP > 100.3'F 01/04/22 23:00 UNV Multi-Ingredient Ointment (Analgesic [place]) 1 osiel PRN QID PRN TP MUSCLE PAIN 01/04/22 23:00 Al Hydroxide/Mg Hydroxide (Mylanta Plus Xs) 15 ml PRN AFTMEALHC PRN PO DYSPEPSIA 01/04/22 23:00 Magnesium Hydroxide (Milk Of Magnesia) 2,400 mg PRN QHS PRN PO CONSTIPATION 01/04/22 23:00 Divalproex Sodium (Depakote Er) 500 mg QHS PO 01/06/22 21:00 01/09/22 17:19 DC 01/08/22 21:33 Divalproex Sodium (Depakote Er) 1,000 mg QHS PO 01/09/22 21:00 01/11/22 19:52 I have reviewed the current psychotropics carefully including drug interactions. Risk benefit ratio favors no change other than as noted in my dictated progress note. Diagnosis: Problems: (1) Schizoaffective disorder, bipolar type (2) Impulse control disorder, unspecified (3) Anxiety disorder, unspecified (4) Bipolar disorder, curr episode mixed, severe, with psychotic features SG AGUIRRE MD January 11, 2022 22:05
[2022-01-12 06:10] VITALS: BP 122/80
[2022-01-12 07:16] LABS: BASO # 0.1 x10^3/uL (0.0-0.2); BASO % 1 % (0-3); EOS # 0.6 x10^3/uL (0.0-0.7); EOS % 8 % (0-3); HEMATOCRIT 43.2 % (39.0-53.0); HEMOGLOBIN 14.5 g/dL (13.0-17.5); LYMPH # 1.8 x10^3/uL (1.0-4.8); LYMPH % 27 % (24-48); MEAN CORPUSCULAR HEMOGLOBIN 31 pg (25-35); MEAN CORPUSCULAR HGB CONC 34 g/dL (31-37); MEAN CORPUSCULAR VOLUME 93 fL (79-100); MONO # 0.7 x10^3/uL (0.0-1.1); MONO % 10 % (0-9); NEUT # 3.6 x10^3uL (1.8-7.7); NEUT % 54 % (31-73); PLATELET COUNT 242 x10^3/uL (140-400); RED BLOOD COUNT 4.66 x10^6/uL (4.30-5.70); RED CELL DISTRIBUTION WIDTH 13.4 % (11.5-14.5); WHITE BLOOD COUNT 6.7 x10^3/uL (4.0-11.0)
[2022-01-12 07:27] LABS: ALBUMIN 3.7 g/dL (3.4-5.0); ALBUMIN/GLOBULIN RATIO 1.1 (1.0-1.7); ALK PHOS 59 U/L (46-116); ALT (SGPT) 41 U/L (16-63); ANION GAP 11 (6-14); AST (SGOT) 18 U/L (15-37); BLOOD UREA NITROGEN 17 mg/dL (8-26); BUN/CREATININE RATIO 15 (6-20); CALCIUM 8.9 mg/dL (8.5-10.1); CARBON DIOXIDE 27 mmol/L (21-32); CHLORIDE 105 mmol/L (98-107); CREATININE 1.1 mg/dL (0.7-1.3); GFR 65.6; GLUCOSE 106 mg/dL (70-99); SODIUM 143 mmol/L (136-145); TOTAL BILIRUBIN 0.4 mg/dL (0.2-1.0)
[2022-01-12 07:36] LABS: VAL ACID 70 mcg/mL (50-100)
[2022-01-12] MEDS: CHLORHEXIDINE 0.12% 15 ML MOUTHWASH. MM SCH ×2 (08:28→20:02)
[2022-01-12] MEDS: CYANOCOBALAMIN (VITAMIN B-12) 1,000 MCG TABLET. PO SCH (08:29)
[2022-01-12] MEDS: QUEtiapine 50 MG TABLET. PO SCH ×2 (08:29→20:03)
[2022-01-12] MEDS: SERTRALINE 100 MG TABLET. PO SCH (08:29)
[2022-01-12] MEDS: ATENOLOL 50 MG TABLET PO SCH (08:30)
--- NOTE | 2022-01-12 08:44 | PDOC ---
Exam Note: Ancelmo Note: This note is a late entry for 01/11/2022 covers elements not covered in my initial note. Subjective: The patient was seen individually on 01/11/2022, discussed and reviewed the chart with Sandy SERRATO. The patient slept 7 hours previous night. Overall he is more appropriate, less grandiose. I met with him in the dining room. Review of Systems: Ambulation impaired. No CV, , pulmonary, eye system symptoms on review. Mental Status Exam: Patient is oriented to himself and situation. Speech coherent, less grandiose. He is more appropriate with less pressure of speech, less impulsive. Abstraction fair. Computation impaired. Language function intact. Mood and affect somewhat grandiose. No suicidal or homicidal ideation. Laboratory Data: Reviewed. Impression: Schizoaffective disorder, bipolar type, mixed with psychotic features. Anxiety disorder unspecified. Impulse control disorder unspecified. Plan: Continue current psychotropics. Reviewed drug interactions, risk-benefit ratio. Adjust as clinically indicated. Dr. Berrios will cover for me from until 01/29/2022. Assessment: Vital Signs/I&O: Vital Signs Date Time Temp Pulse Resp B/P (MAP) Pulse Ox O2 Delivery O2 Flow Rate FiO2 01/12/22 08:30 76 122/80 01/12/22 06:10 97.9 20 91 01/11/22 06:42 Room Air I & O 01/11/22 01/11/22 01/12/22 15:00 23:00 07:00 Intake Total 920 ml 720 ml Balance 920 ml 720 ml Labs: Laboratory Tests Test 01/12/22 06:57 White Blood Count 6.7 x10^3/uL (4.0-11.0) Red Blood Count 4.66 x10^6/uL (4.30-5.70) Hemoglobin 14.5 g/dL (13.0-17.5) Hematocrit 43.2 % (39.0-53.0) Mean Corpuscular Volume 93 fL (79-100) Mean Corpuscular Hemoglobin 31 pg (25-35) Mean Corpuscular Hemoglobin Concent 34 g/dL (31-37) Red Cell Distribution Width 13.4 % (11.5-14.5) Platelet Count 242 x10^3/uL (140-400) Neutrophils (%) (Auto) 54 % (31-73) Lymphocytes (%) (Auto) 27 % (24-48) Monocytes (%) (Auto) 10 % (0-9) H Eosinophils (%) (Auto) 8 % (0-3) H Basophils (%) (Auto) 1 % (0-3) Neutrophils # (Auto) 3.6 x10^3uL (1.8-7.7) Lymphocytes # (Auto) 1.8 x10^3/uL (1.0-4.8) Monocytes # (Auto) 0.7 x10^3/uL (0.0-1.1) Eosinophils # (Auto) 0.6 x10^3/uL (0.0-0.7) Basophils # (Auto) 0.1 x10^3/uL (0.0-0.2) Sodium Level 143 mmol/L (136-145) Potassium Level 4.0 mmol/L (3.5-5.1) Chloride Level 105 mmol/L (98-107) Carbon Dioxide Level 27 mmol/L (21-32) Anion Gap 11 (6-14) Blood Urea Nitrogen 17 mg/dL (8-26) Creatinine 1.1 mg/dL (0.7-1.3) Estimated GFR (Cockcroft-Gault) 65.6 BUN/Creatinine Ratio 15 (6-20) Glucose Level 106 mg/dL (70-99) H Calcium Level 8.9 mg/dL (8.5-10.1) Total Bilirubin 0.4 mg/dL (0.2-1.0) Aspartate Amino Transferase (AST) 18 U/L (15-37) Alanine Aminotransferase (ALT) 41 U/L (16-63) Alkaline Phosphatase 59 U/L (46-116) Total Protein 7.0 g/dL (6.4-8.2) Albumin 3.7 g/dL (3.4-5.0) Albumin/Globulin Ratio 1.1 (1.0-1.7) Valproic Acid Level 70 mcg/mL (50-100) Valproic Acid Last Dose Date 01/11/22 Valproic Acid Last Dose Time 2100 Current Medications: I have reviewed the current psychotropics carefully including drug interactions. Risk benefit ratio favors no change other than as noted in my dictated progress note. Diagnosis: Problems: (1) Schizoaffective disorder, bipolar type (2) Impulse control disorder, unspecified (3) Anxiety disorder, unspecified (4) Bipolar disorder, curr episode mixed, severe, with psychotic features SG AGUIRRE MD January 12, 2022 08:44
[2022-01-12 15:54] VITALS: BP 126/75
[2022-01-12] MEDS: amLODIPine BESYLATE 10 MG TABLET PO SCH (20:03)
[2022-01-12] MEDS: traZODone 50 MG TABLET. PO SCH (20:03)
[2022-01-12] MEDS: ATORVASTATIN CALCIUM 10 MG TABLET. PO SCH (20:03)
[2022-01-12] MEDS: DIVALPROEX ER 500 MG TAB.ER.24H PO SCH (20:03)
[2022-01-12] MEDS: MELATONIN 3 MG TABLET PO SCH (20:04)
--- NOTE | 2022-01-13 03:40 | PN ---
DATE: 01/12/2022 SUBJECTIVE: The patient was seen today, met with the staff, chart reviewed and also covering for Dr. Millan. Staff reports no major behavior problems. The patient also complaining about his being at the detention and apparently feels that taking advantage of him and also he is concerned about people coming in, going out not able to keep track of what is going on at that place and not wanting to go back to detention. Staff reports no major behavior problems. He gets along fairly well with the staff. He is also participating in all the activities. OBSERVATION: VITAL SIGNS: Temperature 97.9, blood pressure 122/80, pulse 76, respirations 20, O2 sat 91%. Slept about 6 hours last night. GENERAL: The patient's appetite normal. LABORATORY DATA: The patient's lab reviewed. The patient's Depakote level was 70. CURRENT MEDICATIONS: The patient's current medications include Depakote 1000 mg at night, Zoloft 100 mg daily, melatonin 9 mg at night, Seroquel 50 mg twice a day, trazodone 25 mg at night and also p.r.n. at night. The patient is not having any side effects to medications. ASSESSMENT: 1. Schizoaffective disorder, bipolar type, mixed, with psychotic features. 2. Anxiety disorder, unspecified. PLAN: To continue with the treatment. LENGTH OF STAY: Seven days. REMBERTO DR: Julee TID: [id number]
[2022-01-13 06:25] VITALS: BP 120/81
[2022-01-13] MEDS: QUEtiapine 50 MG TABLET. PO SCH ×2 (07:27→20:33)
[2022-01-13] MEDS: SERTRALINE 100 MG TABLET. PO SCH (07:28)
[2022-01-13] MEDS: CYANOCOBALAMIN (VITAMIN B-12) 1,000 MCG TABLET. PO SCH (07:28)
[2022-01-13] MEDS: CHLORHEXIDINE 0.12% 15 ML MOUTHWASH. MM SCH ×2 (07:28→20:33)
[2022-01-13] MEDS: ATENOLOL 50 MG TABLET PO SCH (07:28)
[2022-01-13 15:45] VITALS: BP 129/76
[2022-01-13] MEDS: MELATONIN 3 MG TABLET PO SCH (20:32)
[2022-01-13] MEDS: DIVALPROEX ER 500 MG TAB.ER.24H PO SCH (20:32)
[2022-01-13] MEDS: traZODone 50 MG TABLET. PO SCH (20:32)
[2022-01-13] MEDS: amLODIPine BESYLATE 10 MG TABLET PO SCH (20:33)
[2022-01-13] MEDS: ATORVASTATIN CALCIUM 10 MG TABLET. PO SCH (20:33)
--- NOTE | 2022-01-14 00:26 | PN ---
DATE: 01/13/2022 SUBJECTIVE: The patient was seen today, met with the staff. Chart reviewed and also covering for Dr. Millan. The patient continues to be suspicious, paranoid, not trusting anyone. The patient also minimizing his problems, tends to blame others for what is going on with his life. The patient also concrete with his thinking and having difficulty sitting up realistic goals. Staff reports he has been medication compliant. No major behavior problems, but he tends to isolate himself in his room. OBSERVATION: VITAL SIGNS: Temperature 98.2, blood pressure 120/81, pulse 86, respirations 18, O2 sat 95%. GENERAL: Slept about 7 hours last night. The patient's appetite normal. CURRENT MEDICATIONS: Include Depakote 1000 mg at night, Zoloft 100 mg daily, melatonin 9 mg at night, Seroquel 50 mg twice a day. The patient is also on trazodone 25 mg at night and p.r.n. The patient is not having any side effects to the medications. ASSESSMENT: 1. Schizoaffective disorder, bipolar type, mixed, with psychotic features. 2. Anxiety disorder, unspecified. PLAN: To continue treatment. LENGTH OF STAY: Seven days. CLINT DR: Julee TID: [id number]
[2022-01-14 06:05] VITALS: BP 140/94
[2022-01-14] MEDS: CHLORHEXIDINE 0.12% 15 ML MOUTHWASH. MM SCH ×2 (08:28→20:09)
[2022-01-14] MEDS: CYANOCOBALAMIN (VITAMIN B-12) 1,000 MCG TABLET. PO SCH (08:28)
[2022-01-14] MEDS: ATENOLOL 50 MG TABLET PO SCH (08:28)
[2022-01-14] MEDS: SERTRALINE 100 MG TABLET. PO SCH (08:28)
[2022-01-14] MEDS: QUEtiapine 50 MG TABLET. PO SCH ×2 (08:31→20:11)
[2022-01-14 16:05] VITALS: BP_SYST 110; BP_SYST 111; BP_DIAS 71; BP_DIAS 96
[2022-01-14] MEDS: amLODIPine BESYLATE 10 MG TABLET PO SCH (20:10)
[2022-01-14] MEDS: MELATONIN 3 MG TABLET PO SCH (20:10)
[2022-01-14] MEDS: ATORVASTATIN CALCIUM 10 MG TABLET. PO SCH (20:10)
[2022-01-14] MEDS: traZODone 50 MG TABLET. PO SCH (20:11)
[2022-01-14] MEDS: DIVALPROEX ER 500 MG TAB.ER.24H PO SCH (20:11)
[2022-01-15 06:23] VITALS: BP 128/78
[2022-01-15] MEDS: SERTRALINE 100 MG TABLET. PO SCH (08:29)
[2022-01-15] MEDS: QUEtiapine 50 MG TABLET. PO SCH ×2 (08:29→20:00)
[2022-01-15] MEDS: ATENOLOL 50 MG TABLET PO SCH (08:29)
[2022-01-15] MEDS: CHLORHEXIDINE 0.12% 15 ML MOUTHWASH. MM SCH ×2 (08:29→19:59)
[2022-01-15] MEDS: CYANOCOBALAMIN (VITAMIN B-12) 1,000 MCG TABLET. PO SCH (08:29)
--- NOTE | 2022-01-15 09:28 | PN ---
DATE: 01/14/2022 SUBJECTIVE: The patient was seen today and also met with the staff. Chart reviewed and covering for Dr. Millan. The patient also participated in the treatment review meeting today. Explored his current behavior and his decision not to go back to the senior living. Explored placement options. He also has a [facility] support. Staff reports he is much calmer, but very rigid, paranoid at times and also has some delusional thinking with regard to being in a senior living. The patient also states he has been treated for PTSD in the past. OBSERVATION: VITAL SIGNS: Temperature 97.7, blood pressure 140/94, pulse 83, respirations 20, O2 sat 93%. GENERAL: Slept about 7 hours last night. The patient's appetite is normal. CURRENT MEDICATIONS: Include Depakote 1000 mg at night, Zoloft 100 mg at night, melatonin 9 mg at night, trazodone 25 mg at night, Seroquel 50 mg twice a day. He is also on trazodone and olanzapine as p.r.n. The patient is not having any side effects to the medications. LABORATORY DATA: The patient's lab reviewed. ASSESSMENT: 1. Schizoaffective disorder, bipolar type, mixed, with psychotic features. 2. Anxiety disorder, unspecified. PLAN: To continue with treatment. LENGTH OF STAY: Seven days. ANTONY DR: Julee TID: [id number] MTDD
--- NOTE | 2022-01-15 10:07 | TX PLAN ---
Interdisciplinary Tx Plan Admission Information January 04, 2022 at 21:20 Legal Status (on Admission): Voluntary DPOA/Guardian Name: Ashlyn Lyles-sister Contact Other Contact Verified Code Status: Full Code Allergies: Coded Allergies: bupropion (Verified Allergy, Intermediate, 01/04/22) simvastatin (Verified Allergy, Intermediate, 01/04/22) Diagnoses Primary Diagnosis: Schizophrenia, PTSD Reasons for Admission: Aggressive, Delusions, Relation/conflict, Agitated, Angry, Hallucinations, Suspicious/paranoid, Poor impulse control Problem in Patient's Words: Per Dontae, "The doctors at the ID called for a mental and physical evalution" and arranged admission to [facility]. Additional Admission Comments: Per intake record, paranoid, suspicious, agitated, angry, pressured speech, verbally abusive, hallucinating, delusional, yelling about shootings/conspiracies/other violent type ideology. Problems Active Problems: withdrawn to room delusional Inactive Problems: medication compliant Pt Strengths/Limitations Ability for [place]: Poor Cognitive Functioning/Ability: Fair Communication Skills/Ability: Fair Financial Resources: Fair Insight/Judgement: Poor Intellectual Ability: Fair Physical Health: Fair Social Skills: Fair Stability in Family: Fair Stability in School/Work: Fair Verbal Skills: Fair Discharge Criteria Discharge Criteria: No need for close observ., Adequate arrangements @DC, Improved behavior, Improved mood/thought Preliminary Discharge Plan Preliminary DC Plan: [facility] Special Precautions Fall Risk: Low Initial D/C Plan Pt to return [facility] Identified Discharge Needs: [facility] vs. ID housing. Dontae is 100% service connected. Currently Utilized Resources Currently Utilized Resources/P: PCP Providers through the ID Identified Problems/Hx/Goals Objectives/Short-Term Goals Short Term Goals: Control abnormal behavior, Dec. Aggression, Dec. Hallucination/Delus, Dec. Outbursts, Medication Stabilization, Monitor Med Effects Short Term Goals in Patient's: N/A Interventions/Frequency Staff Interventions/Frequency&: Psychiatrist to assess pt at least 3x per week for medication management. Social Work to assess pt at least 2x per week to identify barriers to care and to finalize discharge plans. Nursing to assess medication effects, behavior modification and completion of 15 minute checks daily. Encourage participation in group activities (if applicable) or 1:1 engagement based off Activity Dept goals. 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 Education: Dontae attended school thru the 11th grade. He reports being drafted into the [employer] for the [place] [employer] at age 17. He later obtained his GED. Community Follow-up PCP [facility] services for mental health. Treatment Plan Explained Patient/Assistant Front Office Manager had this treatment plan explained to him/her as indicated by the signature below and has been given the opportunity to ask questions and make suggestions: Date: Patient/Assistant Front Office Manager Signature: Patient/Assistant Front Office Manager Decline: No (Pt sister is involved in pt care) Status Update Update This is pt second Interdisciplinary Treatment team. Pt is eating 100% of meals and sleeping on average 7 hours per night. Pt is A/O x 4, medication compliant with no physical or verbal aggression. Pt participated in his treatment team requesting to discharge to an apartment. He maintains that he cannot go back to the facility as there are ants and cockroaches there. Pt further states that people there and "I did not go there to . This is temporary". Pt reports that a woman in her closet during covid and that there is an 800lb lady there that stands naked in the hallway all the time. "she's gonna fall on someone and kill them". Pt was evicted from his previous resident but believes that his sister will be willing to look for an apartment for him. It was noted that the [facility] is paying for his stay and can look at different options. Pt is adamant that he is going to an appointment and requested that SW speak with his sister to make it happen. SW will follow up with pt family and the facility to discuss next steps for discharge. LYN ENRIQUEZ January 15, 2022 10:07
[2022-01-15 16:14] VITALS: BP 134/72
[2022-01-15] MEDS: MELATONIN 3 MG TABLET PO SCH (19:59)
[2022-01-15] MEDS: ATORVASTATIN CALCIUM 10 MG TABLET. PO SCH (20:00)
[2022-01-15] MEDS: DIVALPROEX ER 500 MG TAB.ER.24H PO SCH (20:00)
[2022-01-15] MEDS: amLODIPine BESYLATE 10 MG TABLET PO SCH (20:00)
[2022-01-15] MEDS: traZODone 50 MG TABLET. PO SCH (20:01)
[2022-01-16 05:33] VITALS: BP 100/69
[2022-01-16] MEDS: CYANOCOBALAMIN (VITAMIN B-12) 1,000 MCG TABLET. PO SCH (08:20)
[2022-01-16] MEDS: QUEtiapine 50 MG TABLET. PO SCH ×2 (08:20→21:11)
[2022-01-16] MEDS: SERTRALINE 100 MG TABLET. PO SCH (08:20)
[2022-01-16] MEDS: ATENOLOL 50 MG TABLET PO SCH (08:22)
[2022-01-16] MEDS: CHLORHEXIDINE 0.12% 15 ML MOUTHWASH. MM SCH ×2 (09:05→21:10)
[2022-01-16 16:15] VITALS: BP 122/79
--- NOTE | 2022-01-16 17:03 | PN ---
DATE: 01/15/2022 SUBJECTIVE: The patient was seen today, met with the staff. Chart reviewed and covering for Dr. Millan. The patient continues to show improvement, able to get along with the staff, did not tend to isolate himself. The patient still totally against going [facility] to [facility] and is willing to consider going into [facility]. OBSERVATION: VITAL SIGNS: Temperature 98.0, blood pressure 134/72, pulse 67, respirations 18 and O2 sat 95%. GENERAL: Slept about 7-1/2 hours last night. CURRENT MEDICATIONS: Include Depakote 1000 mg at night, Zoloft 100 mg daily, melatonin 9 mg at night, trazodone 25 mg at night, Seroquel 50 mg twice a day and trazodone 25 mg at night p.r.n. The patient is not having any side effects to the medications. LABORATORY DATA: The patient's lab reviewed. ASSESSMENT: 1. Schizoaffective disorder, bipolar type, mixed with psychotic features. 2. Anxiety disorder, unspecified. PLAN: To continue treatment. LENGTH OF STAY: 7 days. HALEY/SUKUMAR/STEPHEN DR: HALEY/tiera TID: [id number] [facility]
[2022-01-16] MEDS: DIVALPROEX ER 500 MG TAB.ER.24H PO SCH (21:10)
[2022-01-16] MEDS: amLODIPine BESYLATE 10 MG TABLET PO SCH (21:11)
[2022-01-16] MEDS: traZODone 50 MG TABLET. PO SCH (21:11)
[2022-01-16] MEDS: MELATONIN 3 MG TABLET PO SCH (21:11)
[2022-01-16] MEDS: ATORVASTATIN CALCIUM 10 MG TABLET. PO SCH (21:11)
--- NOTE | 2022-01-17 04:07 | PN ---
DATE: 01/16/2022 SUBJECTIVE: The patient was seen today, met with the staff. Chart was reviewed and I am covering for Dr. Millan. Staff reports continued isolation, but able to hold a conversation, has not presented with any major behavioral problems. He is medication compliant and cooperative with the staff. OBSERVATION: VITAL SIGNS: Temperature 98.1, blood pressure 100/69, pulse 89, respirations 22, O2 sat 93%. GENERAL: Slept about 7 hours last night. The patient's appetite is normal. CURRENT MEDICATIONS: Depakote 1000 mg at night, Zoloft 100 mg daily, melatonin 9 mg at night, trazodone 25 mg at night, Seroquel 50 mg twice a day and trazodone 25 mg at night p.r.n. The patient is not showing any side effects to the medications. LABORATORY DATA: The patient's lab reviewed. ASSESSMENT: 1. Schizoaffective disorder, bipolar type, mixed, with psychotic features. 2. Anxiety disorder, unspecified. PLAN: To continue with the treatment. LENGTH OF STAY: 5-7 days. The patient still hoping to be placed at a different long term, preferably an assisted living. HALEY/JAMES DR: HALEY/tiera TID: [id number]
[2022-01-17 05:56] VITALS: BP 153/101
[2022-01-17] MEDS: CYANOCOBALAMIN (VITAMIN B-12) 1,000 MCG TABLET. PO SCH (08:33)
[2022-01-17] MEDS: SERTRALINE 100 MG TABLET. PO SCH (08:33)
[2022-01-17] MEDS: CHLORHEXIDINE 0.12% 15 ML MOUTHWASH. MM SCH ×2 (08:33→20:23)
[2022-01-17] MEDS: QUEtiapine 50 MG TABLET. PO SCH ×2 (08:33→20:27)
[2022-01-17] MEDS: ATENOLOL 50 MG TABLET PO SCH (08:33)
[2022-01-17 16:03] VITALS: BP 117/62
[2022-01-17] MEDS: DIVALPROEX ER 500 MG TAB.ER.24H PO SCH (20:24)
[2022-01-17] MEDS: ATORVASTATIN CALCIUM 10 MG TABLET. PO SCH (20:25)
[2022-01-17] MEDS: traZODone 50 MG TABLET. PO SCH (20:25)
[2022-01-17] MEDS: MELATONIN 3 MG TABLET PO SCH (20:26)
[2022-01-17] MEDS: amLODIPine BESYLATE 10 MG TABLET PO SCH (20:27)
--- NOTE | 2022-01-18 03:18 | PN ---
DATE: 01/17/2022 SUBJECTIVE: The patient was seen today, met with the staff. Chart was reviewed and covering for Dr. Millan. The patient's behavior has improved. The patient also rigid with his thinking. The patient wanting to be discharged, but still having difficulty making decision and the recommendation is for him to go to an assisted living, but the patient is impatient. He wants to be discharged as soon as possible and is willing to go back to the residential. From there, he will work on moving to an apartment. The patient has a support system through the [facility]. OBSERVATION: VITAL SIGNS: Temperature 98.8, blood pressure 117/62, pulse 69, respirations 16, O2 sat 94%. GENERAL: Slept about 7 hours last night. CURRENT MEDICATIONS: Depakote 1000 mg at night, Zoloft 100 mg daily, melatonin 9 mg at night, trazodone 25 mg at night, Seroquel 25 mg twice a day and trazodone 25 mg at night p.r.n. He is not exhibiting any side effects to medications. LABORATORY DATA: Reviewed. ASSESSMENT: 1. Schizoaffective disorder, bipolar type, mixed, with psychotic features. 2. Anxiety disorder, unspecified. PLAN: To continue treatment. LENGTH OF STAY: Five to seven days. MARIBELL DR: Julee TID: [id number]
[2022-01-18 06:02] VITALS: BP 149/95
[2022-01-18] MEDS: CHLORHEXIDINE 0.12% 15 ML MOUTHWASH. MM SCH ×2 (08:25→20:23)
[2022-01-18] MEDS: CYANOCOBALAMIN (VITAMIN B-12) 1,000 MCG TABLET. PO SCH (08:26)
[2022-01-18] MEDS: QUEtiapine 50 MG TABLET. PO SCH ×2 (08:26→20:24)
[2022-01-18] MEDS: SERTRALINE 100 MG TABLET. PO SCH (08:26)
[2022-01-18] MEDS: ATENOLOL 50 MG TABLET PO SCH (08:26)
[2022-01-18 15:33] VITALS: BP 150/75
[2022-01-18] MEDS: amLODIPine BESYLATE 10 MG TABLET PO SCH (20:24)
[2022-01-18] MEDS: traZODone 50 MG TABLET. PO SCH (20:24)
[2022-01-18] MEDS: MELATONIN 3 MG TABLET PO SCH (20:24)
[2022-01-18] MEDS: ATORVASTATIN CALCIUM 10 MG TABLET. PO SCH (20:24)
[2022-01-18] MEDS: DIVALPROEX ER 500 MG TAB.ER.24H PO SCH (20:25)
[2022-01-19 06:02] VITALS: BP 143/84
--- NOTE | 2022-01-19 07:59 | PN ---
DATE: 01/18/2022 SUBJECTIVE: The patient was seen today, met with the staff. Chart was reviewed and covering for Dr. Millan. Staff reports no major behavioral problems. He is withdrawn, isolative, but cooperative and medication compliant. Still has some paranoid ideation. CURRENT MEDICATIONS: Melatonin 9 mg at night, Depakote 1000 mg at night, Zoloft 100 mg daily, trazodone 25 mg at night and Seroquel 25 mg twice a day and trazodone 25 mg at night p.r.n. He is not having any side effects to medications. LABORATORY DATA: The patient's lab reviewed. ASSESSMENT: 1. Schizoaffective disorder, bipolar type, mixed, with psychotic features. 2. Anxiety disorder, unspecified. PLAN: To continue with treatment. The patient is planned for discharge in 4 days' time but will be returning to the correction. LENGTH OF STAY: Five to seven days. SHARMIN DR: Julee TID: [id number]
[2022-01-19 08:04] LABS: BASO # 0.1 x10^3/uL (0.0-0.2); BASO % 1 % (0-3); EOS # 0.6 x10^3/uL (0.0-0.7); EOS % 9 % (0-3); HEMATOCRIT 44.2 % (39.0-53.0); HEMOGLOBIN 14.6 g/dL (13.0-17.5); LYMPH # 1.4 x10^3/uL (1.0-4.8); LYMPH % 21 % (24-48); MEAN CORPUSCULAR HEMOGLOBIN 31 pg (25-35); MEAN CORPUSCULAR HGB CONC 33 g/dL (31-37); MEAN CORPUSCULAR VOLUME 93 fL (79-100); MONO # 0.6 x10^3/uL (0.0-1.1); MONO % 9 % (0-9); NEUT % 60 % (31-73); PLATELET COUNT 227 x10^3/uL (140-400); RED BLOOD COUNT 4.77 x10^6/uL (4.30-5.70); RED CELL DISTRIBUTION WIDTH 13.3 % (11.5-14.5); WHITE BLOOD COUNT 6.7 x10^3/uL (4.0-11.0)
[2022-01-19 08:24] LABS: ALBUMIN 3.6 g/dL (3.4-5.0); ALBUMIN/GLOBULIN RATIO 1.1 (1.0-1.7); CALCIUM 8.5 mg/dL (8.5-10.1); GFR 73.2; POTASSIUM 3.8 mmol/L (3.5-5.1); TOTAL BILIRUBIN 0.3 mg/dL (0.2-1.0); TOTAL PROTEIN 6.8 g/dL (6.4-8.2)
[2022-01-19] MEDS: SERTRALINE 100 MG TABLET. PO SCH (08:25)
[2022-01-19] MEDS: ATENOLOL 50 MG TABLET PO SCH (08:26)
[2022-01-19] MEDS: QUEtiapine 50 MG TABLET. PO SCH ×2 (08:26→19:33)
[2022-01-19] MEDS: CYANOCOBALAMIN (VITAMIN B-12) 1,000 MCG TABLET. PO SCH (08:26)
[2022-01-19] MEDS: CHLORHEXIDINE 0.12% 15 ML MOUTHWASH. MM SCH ×2 (08:26→19:34)
[2022-01-19 15:38] VITALS: BP 118/74
[2022-01-19] MEDS: traZODone 50 MG TABLET. PO SCH (19:32)
[2022-01-19] MEDS: MELATONIN 3 MG TABLET PO SCH (19:32)
[2022-01-19] MEDS: amLODIPine BESYLATE 10 MG TABLET PO SCH (19:33)
[2022-01-19] MEDS: DIVALPROEX ER 500 MG TAB.ER.24H PO SCH (19:33)
[2022-01-19] MEDS: ATORVASTATIN CALCIUM 10 MG TABLET. PO SCH (19:33)
--- NOTE | 2022-01-20 03:55 | PN ---
DATE: 01/19/2022 SUBJECTIVE: The patient was seen today, met with the staff. Chart was reviewed and covering for Dr. Millan. Staff reports no major problems. He tends to isolate himself, stays in his room. Still somewhat suspicious, some paranoia, but no overt psychotic symptoms. OBSERVATION: VITAL SIGNS: Temperature 97.9, blood pressure 143/84, pulse 78, respirations 18, O2 sat 95%. GENERAL: Slept about 8 hours last night. The patient's appetite normal. CURRENT MEDICATIONS: The patient's current medications include melatonin 9 mg at night, Depakote 1000 mg at night, Zoloft 100 mg daily, trazodone 25 mg at night and Seroquel 25 mg twice a day. The patient is also on trazodone 25 mg at night p.r.n. The patient denies of any side effects. LABORATORY DATA: The patient's lab reviewed. ASSESSMENT: 1. Schizoaffective disorder, bipolar type, mixed, with psychotic features. 2. Anxiety disorder, unspecified. PLAN: To continue with treatment. The patient is planned for discharge next week. LENGTH OF STAY: Four to five days. NIKIA WOOTEN: Julee TID: [id number]
[2022-01-20 05:49] VITALS: BP 123/84
[2022-01-20] MEDS: ATENOLOL 50 MG TABLET PO SCH (08:41)
[2022-01-20] MEDS: CYANOCOBALAMIN (VITAMIN B-12) 1,000 MCG TABLET. PO SCH (08:41)
[2022-01-20] MEDS: CHLORHEXIDINE 0.12% 15 ML MOUTHWASH. MM SCH ×2 (08:41→19:40)
[2022-01-20] MEDS: SERTRALINE 100 MG TABLET. PO SCH (08:41)
[2022-01-20] MEDS: QUEtiapine 50 MG TABLET. PO SCH ×2 (08:41→19:40)
[2022-01-20 16:02] VITALS: BP 123/66
[2022-01-20] MEDS: traZODone 50 MG TABLET. PO SCH (19:39)
[2022-01-20] MEDS: ATORVASTATIN CALCIUM 10 MG TABLET. PO SCH (19:40)
[2022-01-20] MEDS: MELATONIN 3 MG TABLET PO SCH (19:40)
[2022-01-20] MEDS: amLODIPine BESYLATE 10 MG TABLET PO SCH (19:40)
[2022-01-20] MEDS: DIVALPROEX ER 500 MG TAB.ER.24H PO SCH (19:41)
--- NOTE | 2022-01-20 23:53 | PN ---
DATE: 01/20/2022 SUBJECTIVE: The patient was seen today, met with the staff. Chart was reviewed and covering for Dr. Millan. Staff reports no major behavior problems except he tends to isolate himself, get upset when people are trying to walk into his room, especially the patients. OBSERVATION: VITAL SIGNS: Temperature 98.5, blood pressure 123/84, pulse 79, respirations 18, O2 sat 92%. GENERAL: Slept about 7 hours last night. His appetite is normal. CURRENT MEDICATIONS: Melatonin 9 mg at night, Depakote 1000 mg at night, Zoloft 100 mg daily, trazodone 25 mg at night and Seroquel 25 mg twice a day. The patient is also on trazodone 25 mg at night p.r.n. He denies of any side effects. ASSESSMENT: 1. Schizoaffective disorder, bipolar type, mixed, with psychotic features. 2. Anxiety disorder, unspecified. PLAN: To continue treatment. The patient is looking forward with discharge next week. He will be returning to the custodial. From their he will work towards moving to another facility or an apartment. LENGTH OF STAY: Four days. ANTONY WOOTEN: Julee TID: [id number]
[2022-01-21 05:59] VITALS: BP 112/77
[2022-01-21] MEDS: CYANOCOBALAMIN (VITAMIN B-12) 1,000 MCG TABLET. PO SCH (07:26)
[2022-01-21] MEDS: QUEtiapine 50 MG TABLET. PO SCH ×2 (07:26→20:20)
[2022-01-21] MEDS: SERTRALINE 100 MG TABLET. PO SCH (07:26)
[2022-01-21] MEDS: ATENOLOL 50 MG TABLET PO SCH (07:27)
[2022-01-21] MEDS: CHLORHEXIDINE 0.12% 15 ML MOUTHWASH. MM SCH ×2 (10:03→20:20)
[2022-01-21 16:02] VITALS: BP 146/76
[2022-01-21] MEDS: DIVALPROEX ER 500 MG TAB.ER.24H PO SCH (20:19)
[2022-01-21] MEDS: traZODone 50 MG TABLET. PO SCH (20:19)
[2022-01-21] MEDS: ATORVASTATIN CALCIUM 10 MG TABLET. PO SCH (20:19)
[2022-01-21] MEDS: amLODIPine BESYLATE 10 MG TABLET PO SCH (20:20)
[2022-01-21] MEDS: MELATONIN 3 MG TABLET PO SCH (20:20)
--- NOTE | 2022-01-21 22:41 | DS ---
PROGRESS NOTE AND DISCHARGE SUMMARY FINAL DIAGNOSES: AXIS I: 1. Schizoaffective disorder, bipolar type, mixed, with psychotic features. 2. Anxiety disorder, unspecified. 3. Impulse control disorder, unspecified. AXIS II: None. AXIS III: Hyperlipidemia, hypertension, gastroesophageal reflux disease, hyponatremia, diabetes mellitus, back pain. The patient also was treated for posttraumatic stress disorder and he has [employer] benefits. REASON FOR ADMISSION: This 71-year-old male who was admitted to [facility] inpatient program from [facility] in [place] after he presented to the [facility] in [place] and sent here because of acute exacerbation of his schizophrenia versus schizoaffective disorder, bipolar type and history of PTSD. The patient also has been paranoid, suspicious, tendency to get extremely agitated, also angry and some pressure of speech and also has been verbally abusive. The patient apparently has failed outpatient treatment. CHIEF COMPLAINT: "It smells bad, my roommate poops and spread feces all over his body. The patient also getting extremely frustrated and increased agitation and also feeling angry and also angry with senior care, not wanting to go back initially. HISTORY OF PRESENT ILLNESS: The patient apparently was angry, suspicious, paranoid, isolating himself in his room and admits to having trust issues and also dealing with the past trauma and also he is upset because he was evicted from his apartment that led to his admission to the senior care. The patient apparently was exhibiting mood swings. HOSPITAL COURSE: The patient had a physical exam, routine lab work including CBC, chem profile, urinalysis, which were all within normal range. The patient's glucose level was 106. The patient's iron was 35. Iron saturation 14. Vitamin D 18.8. The patient's urinalysis was within normal range. The patient was involved in the program including individual therapy, group therapy, activity therapy and the patient gradually started feeling better, more comfortable accepting of stay here and also trusting staff and compliant with the medications. He was on Zoloft 100 mg daily, Depakote 1000 mg at night, B12 1000 mcg daily, atenolol 50 mg daily, Lipitor 10 mg at night, melatonin 9 mg at night, trazodone 25 mg at night, Seroquel 50 mg twice a day, amlodipine 10 mg at night. The patient was also on p.r.n. trazodone and olanzapine. The patient did not have any side effects to the medications. The patient participated in most of the activities. The patient also is accepting of the discharge. MENTAL STATUS: The patient appeared to be of stated age, casually dressed, much more comfortable, less anxious and tense, able to make eye contact. His speech was clear with normal rate and rhythm. Affect and mood, somewhat constricted. Decreased psychomotor activity. Not depressed. No evidence of any psychotic symptoms. The patient tends to be paranoid at times. Currently not having any delusional thinking, no major mood swings. He did not express any suicidal or homicidal thoughts. He is oriented to time, place and person. His memory is intact for both past and present. The patient's judgment is fair. [employer] limited. DISCHARGE PLAN: The patient will be transported back to [facility] and will continue on the medication listed above. I also recommend that he continue to see a psychiatrist on the premises or with the [facility] and also follow up with primary care physician. The patient's behavior significantly improved and he was medically stable. NIKIA DR: Julee TID: [id number]
[2022-01-22] MEDS ORDERED: DIVA500T17 PO (00:05)
[2022-01-22] MEDS ORDERED: MAGN24003 PO (00:06)
[2022-01-22] MEDS ORDERED: MAG30ORA2 PO (00:08)
[2022-01-22] MEDS ORDERED: METH99.2 TP (00:10)
[2022-01-22 05:57] VITALS: BP 165/85
[2022-01-22 08:03] VITALS: BP 165/85
[2022-01-22] MEDS: CHLORHEXIDINE 0.12% 15 ML MOUTHWASH. MM SCH (08:03)
[2022-01-22] MEDS: ATENOLOL 50 MG TABLET PO SCH (08:03)
[2022-01-22] MEDS: QUEtiapine 50 MG TABLET. PO SCH (08:03)
[2022-01-22] MEDS: CYANOCOBALAMIN (VITAMIN B-12) 1,000 MCG TABLET. PO SCH (08:03)
[2022-01-22] MEDS: SERTRALINE 100 MG TABLET. PO SCH (08:03)
== END 2022-01-22 12:36 | DRG 885 ==
LOC: EDBD 21:20 → GEROPSY 21:20
PROVIDERS: ADMIT Psychiatry & Neurology Psychiatry; ATTEND Psychiatry & Neurology Psychiatry
DX: F25.0 Schizoaffective disorder, bipolar type (principal); E87.1 Hypo-osmolality and hyponatremia; E11.9 Type 2 diabetes mellitus without complications; E78.5 Hyperlipidemia, unspecified; F43.10 Post-traumatic stress disorder, unspecified; F60.0 Paranoid personality disorder; F63.9 Impulse disorder, unspecified; G89.29 Other chronic pain; I10 Essential (primary) hypertension; K21.9 Gastro-esophageal reflux disease without esophagitis; Z79.899 Other long term (current) drug therapy; G47.00 Insomnia, unspecified; F10.20 Alcohol dependence, uncomplicated; Z20.822 Contact with and (suspected) exposure to COVID-19; Z88.8 Allergy status to other drugs, medicaments and biological substances
CPT/HCPCS: 36415; 80053; 80061; 80164; 81001; 82306; 83036; 83540; 83550; 83735; 84436; 84443; 84480; 85025; 85379; 86592; 93005; J1650; U0003; 97116; 97530